=== PATIENT | female | born 1985 | race American Indian/Alaskan Native ===

== ENCOUNTER 2016-07-28 18:45 | Inpatient (IN) | payer MEDICAID ==
[2016-07-28 18:49] VITALS: BMI 21.6
[2016-07-28] MEDS ORDERED: Sodium Chloride 0.9% 1,000 ML IV STA ×2 (19:03→21:20)
--- NOTE | 2016-07-28 19:07 | ED PDOC ---
"Arrival/HPI - General Chief Complaint: Abdominal Pain Time Seen by Provider: 07/28/16 18:57 Historian: Patient - History of Present Illness Narrative History of Present Illness (Text): 07/28/16 19:04 31 y/o female, pmh including htn/lupus, penicillin allergy, c/o rt. upper quadrant and lower quadrant abdominal pain x 3 days. Pt. stated that she started to feel warm about today ago, started to have rt. upper and lower abdominal pain today, feels generalized body aching pain, no nausea or vomiting , no dizziness, no palpitation, no other medical or psychological complaints. Past Medical History - Provider Review Nursing Documentation Reviewed: Yes - Cardiac Hx Hypertension: Yes - Endocrine/Metabolic Hx Systemic Lupus Erythematosus: Yes - Psychiatric Hx Substance Use: No - Surgical History Hx Section: Yes Hx Joint Replacement: Yes (Bilateral Hip) Family/Social History - Physician Review Nursing Documentation Reviewed: Yes Family/Social History: Unknown Family HX Smoking Status: Never Smoked Hx Alcohol Use: No Hx Substance Use: No Allergies/Home Meds Allergies/Adverse Reactions: Allergies Penicillins Allergy (Verified 07/28/16 18:49) ANAPHYLAXIS Home Medications: Home Meds Medication Instructions Recorded Confirmed Cholecalciferol (Vitamin D3) 2,000 unit PO DAILY 07/28/16 07/28/16 [Vitamin D3] Hydroxychloroquine Sulfate 200 mg PO BID 07/28/16 07/28/16 amLODIPine [Norvasc] 5 mg PO DAILY 07/28/16 07/28/16 azaTHIOprine [Azathioprine] 50 mg PO DAILY 07/28/16 07/28/16 predniSONE [predniSONE Tab] 5 mg PO BID 07/28/16 07/28/16 Review of Systems - Review of Systems Constitutional: Fatigue, Fevers Eyes: absent: Vision Changes ENT: absent: Hearing Changes Respiratory: absent: SOB, Cough Cardiovascular: absent: Chest Pain Gastrointestinal: Abdominal Pain. absent: Nausea, Vomiting Musculoskeletal: Myalgias. absent: Arthralgias, Back Pain Psychiatric: absent: Anxiety, Depression, Suicidal Ideation Physical Exam Vital Signs Reviewed: Yes Vital Signs Temp Pulse Resp BP Pulse Ox 07/28/16 23:36 16 99 07/28/16 21:41 98.9 F 87 16 108/73 98 07/28/16 21:12 97 H 18 103/77 100 07/28/16 19:58 102 H 18 101/73 100 07/28/16 18:53 99.7 F H 114 H 16 99/71 L 100 Temperature: Afebrile Blood Pressure: Normal Pulse: Tachycardic Respiratory Rate: Normal Appearance: Positive for: Well-Appearing, Non-Toxic, Uncomfortable Pain Distress: Moderate Mental Status: Positive for: Alert and Oriented X 3 - Systems Exam Head: Present: Atraumatic, Normocephalic Pupils: Present: PERRL Extroacular Muscles: Present: EOMI Conjunctiva: Present: Normal Ears: Present: NORMAL TM, Normal Canal. No: Erythema Mouth: Present: Moist Mucous Membranes Nose (Internal): Present: Normal Inspection, No Active Bleeding. No: Rhinorrhea , Septal Hematoma, Epistaxis Neck: Present: Normal Range of Motion Respiratory/Chest: Present: Clear to Auscultation, Good Air Exchange. No: Respiratory Distress, Accessory Muscle Use, Wheezes, Decreased Breath Sounds, Rales, Retracting, Rhonchi Cardiovascular: Present: Regular Rate and Rhythm, Normal S1, S2. No: Murmurs Abdomen: Present: Tenderness (generalized tenderness), Normal Bowel Sounds. No : Distention, Peritoneal Signs Back: Present: Normal Inspection, CVA Tenderness (+rt.cva). No: Midline Tenderness, Paraspinal Tenderness Upper Extremity: Present: Normal Inspection. No: Cyanosis, Edema Lower Extremity: Present: Normal Inspection. No: Edema Neurological: Present: GCS=15, Speech Normal, Motor Func Grossly Intact, Gait Normal, Memory Normal Skin: Present: Warm, Dry, Normal Color. No: Rashes Psychiatric: Present: Alert, Oriented x 3, Normal Insight, Normal Concentration Medical Decision Making ED Course and Treatment: 07/28/16 19:07 -labs/ua/lipase -Gallbladder sonogram -CT Abdomen and pelvis -IVF/toradol/tylenol po -Observe and reasess 07/28/16 20:58 -Contrast cancelled due to the BUN/Creatine level elevated. 07/28/16 21:12 -Labs are non-significant except wbc 16.3, BUN 44, creatine 3.3, Urinalysis + UTI. IV rocephine ordered. -Gallbladder sonogram show no acute cholecystitis -CT Abdomen show rt. pernephric stranding, correlate with the Urinalysis. -Blood culture added. -Pt. will need admission for hydration/IV antibiotic and for renal insufficiency. -Paged the house doctor robby. 07/28/16 21:18 -I spoke to Dr. España and the medical historian Dr. Mega tSarr, discussed about the case/labs/radiology results, agreed on the admission. 07/28/16 21:19 -I discussed with DR. Murray about the case, he will put in the admission order. 07/28/16 21:25 -Pt. stated that the pain return, morphine 2mg IV ordered. -Lactic acid 1.5 - Lab Interpretations Microbiology Results: Microbiology Results 07/28/16 19:10 Urine,Clean Catch Urine Culture - Final Escherichia Coli 07/28/16 20:30 Blood-Venous Blood Culture - Final Escherichia Coli 07/28/16 20:30 Blood-Venous Gram Stain - Final 07/28/16 20:00 Blood-Venous Blood Culture - Final Escherichia Coli 07/28/16 20:00 Blood-Venous Gram Stain - Final Lab Results: 07/28/16 19:20 07/28/16 19:20 Lab Results 07/28/16 21:10: pO2 37, VBG pH 7.30 L, VBG pCO2 44.0, VBG HCO3 21.6, VBG Total CO2 23.0, VBG O2 Sat (Calc) 67.0 H, VBG Base Excess -4.8 L, VBG Potassium 3.6, Glucose 94, Lactate 1.5, FiO2 21.0, Sodium 138.0, Chloride 110.0 H, Venous Blood Potassium 3.6 07/28/16 19:20: Sodium 137, Potassium 3.7, Chloride 100, Carbon Dioxide 24, Anion Gap 17, BUN 44 H, Creatinine 3.3 H, Est GFR ( Amer) 20, Est GFR ( Non-Af Amer) 16, Random Glucose 116 H, Calcium 10.0, Total Bilirubin 1.0, AST 41 H, ALT 25, Alkaline Phosphatase 102, Total Protein 8.6 H, Albumin 3.9, Globulin 4.7, Albumin/Globulin Ratio 0.8 L, Lipase < 10 L 07/28/16 19:20: WBC 16.3 H, RBC 3.40 L, Hgb 11.2 L, Hct 32.1 L, MCV 94.4, MCH 32.9, MCHC 34.9, RDW 13.3, Plt Count 157, MPV 12.2 H, Gran % 94.2 H, Lymph % ( Auto) 1.8 L, [place] % (Auto) 3.8, Eos % (Auto) 0.1 L, Baso % (Auto) 0.1, Gran # 15.36 H, Lymph # 0.3 L, [place] # 0.6, Eos # 0.0, Baso # 0.01, Retic Count 0.46 L 07/28/16 19:10: Urine Color Yellow, Urine Appearance Turbid, Urine pH 5.5, Ur Specific [place] >= 1.030, Urine Protein >=300 H, Urine Glucose (UA) Negative, Urine Ketones Negative, Urine Blood Large H, Urine Nitrate Negative, Urine Bilirubin Small H, Urine Urobilinogen 1.0 H, Ur Leukocyte Esterase Moderate H, Urine RBC 5 - 10, Urine WBC Tntc, Ur Epithelial Cells 3 - 4, Urine Bacteria Many , Coarse Granular Casts Mod H I have reviewed the lab results: Yes Interpretation: Abnormal lab values (wbc 16.3, BUN 44, creatine 3.3, Urinalysis +UTI) - RAD Interpretation Radiology Orders: 07/28/16 19:03 GALLBLADDER & COMMON DUCT [US] Stat 07/28/16 20:19 ABDOMEN & PELVIS [ABD & PELVIS W/O PO OR IV CONT] [CT] Stat Gallbladder sonogram: Liver: Fatty infiltration. No mass. No intrahepatic ductal dilatation. Gallbladder: No gallstones. No wall thickening. No pericholecystic fluid. No sonographic Sommer's sign. Common bile duct: No dilatation. No stones. Pancreas: Unremarkable as visualized. Right kidney: Normal echogenicity. No hydronephrosis. Other findings: 1.1 x 2.1 x 1.4 cm paraaortic lesion. IMPRESSION: 1. Hepatic steatosis. 2. Probable paraaortic lymph node. 3. Incidental/non-acute findings are described above. Thank you for allowing us to participate in the care of your patient. Dictated and Authenticated by: Rolando Mtz MD 07/28/2016 8:56 PM Eastern Time ([place] & [place]) CT Abdomen and pelvis: FINDINGS: Limitations: Streak artifact - mild. Lack of intravenous contrast. Lower thorax: No acute findings. ABDOMEN: Liver: Mildly enlarged. Gallbladder and bile ducts: No calcified stones. No ductal dilation. Pancreas: Unremarkable. No ductal dilation. Spleen: No splenomegaly. Adrenals: No mass. Kidneys and ureters: Mild stranding about RIGHT kidney. No renal calculi. No hydronephrosis. Normal caliber visualized ureters. Suboptimal visualization of distal ureters due to streak artifact. Stomach and bowel: Segmental areas of underdistention of colon. No definite mural thickening. No obstruction. Appendix: Normal caliber. No inflammation. PELVIS: Bladder: Unremarkable. No stones. Reproductive: Unremarkable as visualized. AMAYAANUPAM | Final Radiology Report CONFIDENTIALITY STATEMENT This report is intended only for use by the referring physician, and only in accordance with law. If you received this in error, call [phone]. Page 2 of 2 ABDOMEN and PELVIS: Intraperitoneal space: No significant fluid collection. No free air. Bones/joints: Bilateral hip arthroplasties. No acute fracture. Soft tissues: Unremarkable. Vasculature: Unremarkable. No abdominal aortic aneurysm. Lymph nodes: No pathologically enlarged lymph nodes. IMPRESSION: 1. No definite CT evidence of urolithiasis. 2. RIGHT perinephric stranding, nonspecific. Pyelonephritis not excluded. Correlate with urinalysis. 3. Incidental/non-acute findings are described above. Thank you for allowing us to participate in the care of your patient. Dictated and Authenticated by: Rolando Mtz MD 07/28/2016 9:08 PM Eastern Time ([place] & [place]) Chest xray: no consolidation or infiltrate Molecular Geneticist: Radiologist - Medication Orders Current Medication Orders: Amlodipine Besylate (Norvasc) 5 mg PO DAILY [facility] Last Admin: 08/01/16 09:21 Dose: 5 mg Azathioprine (Imuran) 50 mg PO DAILY [facility] Last Admin: 07/31/16 09:55 Dose: 50 mg Hydroxychloroquine Sulfate (Plaquenil) 200 mg PO BID [facility] Last Admin: 08/01/16 09:20 Dose: 200 mg Aztreonam (Azactam 1 Gm) 100 mls @ 100 mls/hr IV Q8 [facility] PRN Reason: Protocol Stop: 08/13/16 22:01 Last Admin: 08/01/16 05:00 Dose: 100 mls/hr Sodium Chloride (Sodium Chloride 0.9%) 1,000 mls @ 100 mls/hr IV .Q10H [facility] Last Admin: 08/01/16 09:09 Dose: 100 mls/hr Morphine Sulfate (Morphine) 1 mg IVP Q4 PRN PRN Reason: moderate pain Last Admin: 08/01/16 09:18 Dose: 1 mg Ondansetron HCl (Zofran Inj) 4 mg IVP Q4 PRN PRN Reason: Nausea/Vomiting Last Admin: 08/01/16 09:00 Dose: 4 mg Pantoprazole Sodium (Protonix Inj) 40 mg IVP DAILY [facility] Last Admin: 08/01/16 09:19 Dose: 40 mg Prednisone (Prednisone Tab) 5 mg PO BID [facility] Last Admin: 08/01/16 09:20 Dose: 5 mg Sucralfate (Carafate Oral Susp) 1 gm PO TID PRN PRN Reason: Dyspepsia Last Admin: 07/29/16 05:39 Dose: 1 gm Discontinued Medications Acetaminophen (Tylenol 325mg Tab) 650 mg PO STAT STA Stop: 07/28/16 19:09 Last Admin: 07/28/16 19:34 Dose: 650 mg Re-Assess: MAR Pain/Vitals Document 07/28/16 20:34 JOL (Rec: 07/28/16 21:07 JOL [id number]) Pain Reassessment Is This A Pain ReAssessment? No Sleep Is patient sleeping during reassessment? No Presence of Pain Presence of Pain Yes Acetaminophen (Tylenol 325mg Tab) 650 mg PO Q6H PRN PRN Reason: Fever >100.4 F Last Admin: 08/01/16 07:15 Dose: 650 mg Acetaminophen (Tylenol 325mg Tab) 650 mg PO STAT STA Stop: 08/01/16 08:33 Last Admin: 08/01/16 09:01 Dose: 650 mg Sodium Chloride (Sodium Chloride 0.9%) 1,000 mls @ 999 mls/hr IV .Q1H1M STA Stop: 07/28/16 20:03 Last Admin: 07/28/16 19:25 Dose: 999 mls/hr Ceftriaxone Sodium (Rocephin 1 Gram Ivpb) 1 gm in 100 mls @ 200 mls/hr IVPB STAT STA PRN Reason: Protocol Stop: 07/28/16 20:49 Last Admin: 07/28/16 21:13 Dose: 200 mls/hr Sodium Chloride (Sodium Chloride 0.9%) 1,000 mls @ 999 mls/hr IV .Q1H1M STA Stop: 07/28/16 22:20 Last Admin: 07/28/16 21:55 Dose: Sodium Chloride (Sodium Chloride 0.9%) 1,000 mls @ 100 mls/hr IV .Q10H [facility] Last Admin: 07/28/16 21:48 Dose: 100 mls/hr Ceftriaxone Sodium (Rocephin 1 Gram Ivpb) 1 gm in 100 mls @ 100 mls/hr IVPB DAILY [facility] PRN Reason: Protocol Last Admin: 07/29/16 09:31 Dose: 100 mls/hr Sodium Chloride (Sodium Chloride 0.9%) 1,000 mls @ 150 mls/hr IV .Q6H40M [facility] Last Admin: 07/30/16 03:59 Dose: 150 mls/hr Potassium Chloride (Potassium Chloride 10 Meq/100 Ml) 10 meq in 100 mls @ 100 mls/hr IVPB Q2H [facility] Stop: 07/29/16 12:29 Last Admin: 07/29/16 15:13 Dose: 100 mls/hr Ciprofloxacin (Cipro 400mg/200ml Dsw) 400 mg in 200 mls @ 133.3 mls/hr IVPB Q12 [facility] PRN Reason: Protocol Stop: 07/29/16 14:01 Last Admin: 07/29/16 15:08 Dose: 133.3 mls/hr Aztreonam (Azactam 1 Gm) 100 mls @ 100 mls/hr IVPB Q8 [facility] PRN Reason: Protocol Stop: 07/30/16 22:59 Last Admin: 07/30/16 15:10 Dose: 100 mls/hr Iohexol (Omnipaque 240 (50 Ml)) Confirm Administered Dose 100 ml .ROUTE .STK- MED ONE Stop: 07/28/16 19:21 Last Admin: 07/28/16 21:08 Dose: Iohexol (Omnipaque 350 100 Ml) Confirm Administered Dose 350 mg .ROUTE .STK-MED ONE Stop: 07/28/16 19:22 Ketorolac Tromethamine (Toradol) 30 mg IVP STAT STA Stop: 07/28/16 19:09 Last Admin: 07/28/16 19:33 Dose: 30 mg Re-Assess: [facility] Pain Assessment Document 07/28/16 20:33 JORica (Rec: 07/28/16 21:07 [facility] [id number]) Pain Reassessment Is this a pain reassessment? No Sleep Is patient sleeping during reassessment? No Presence of Pain Presence of Pain Yes Morphine Sulfate (Morphine) 2 mg IVP STAT STA Stop: 07/28/16 21:26 Last Admin: 07/28/16 21:48 Dose: 2 mg Morphine Sulfate (Morphine) 2 mg IVP Q6H PRN PRN Reason: Pain, severe (8-10) Morphine Sulfate (Morphine) 2 mg IVP Q3H PRN PRN Reason: Pain, severe (8-10) Last Admin: 07/29/16 12:17 Dose: 2 mg Morphine Sulfate (Morphine) 4 mg IVP Q3H PRN PRN Reason: moderate pain Last Admin: 07/31/16 13:32 Dose: 4 mg Re-Assess: [facility] Pain Assessment Document 07/31/16 14:32 LORA (Rec: 07/31/16 14:58 [facility] [id number]) Pain Reassessment Is this a pain reassessment? Yes Sleep Is patient sleeping during reassessment? No Presence of Pain Presence of Pain No Morphine Sulfate (Morphine) 2 mg IVP Q3H PRN PRN Reason: moderate pain Last Admin: 08/01/16 04:24 Dose: 2 mg Re-Assess: [facility] Pain Assessment Document 08/01/16 05:24 SD (Rec: 08/01/16 07:14 SD [id number]) Pain Reassessment Is this a pain reassessment? Yes Sleep Is patient sleeping during reassessment? No Presence of Pain Presence of Pain No Pain Scale Used Pain Scale Used Numeric Ondansetron HCl (Zofran Inj) 8 mg IVP Q8H PRN PRN Reason: Nausea/Vomiting Ondansetron HCl (Zofran Inj) 4 mg IVP Q6H PRN PRN Reason: Nausea/Vomiting Potassium Chloride (K-Dur 20 Meq Er Tab) 20 meq PO ONCE ONE Stop: 08/01/16 14:39 - PA / [employer]ER [employer]IVER / Resident Statement MD/DO has reviewed & agrees with the documentation as recorded. Disposition/Present on Arrival - Present on Arrival Any Indicators Present on Arrival: No History of DVT/PE: No History of Uncontrolled Diabetes: No Urinary Catheter: No History of Decub. Ulcer: No History Surgical Site Infection Following: None - Disposition Have Diagnosis and Disposition been Completed?: Yes Diagnosis: Pyelonephritis, Leukocytosis (leucocytosis), Dehydration, Renal injury, Renal insufficiency Disposition: HOSPITALIZED Disposition Time: 21:14 Patient Plan: Admission Patient Problems: Current Active Problems Problem Status Onset Dehydration Acute Leukocytosis (leucocytosis) Acute Pyelonephritis Acute Renal injury Acute Renal insufficiency Acute Condition: STABLE"
[2016-07-28] MEDS ORDERED: Iohexol 240 (50 ml) ONE (19:20)
[2016-07-28] MEDS ORDERED: Iohexol 350 MG/100 ML VIAL ONE (19:21)
[2016-07-28 19:25] LABS: PH,URINE 5.5 (4.7-8.0); URINE BILIRUBIN SMALL (NEGATIVE); URINE BLOOD LARGE (NEGATIVE); URINE GLUCOSE (UA) NEGATIVE (NEGATIVE); URINE KETONE NEGATIVE (NEGATIVE); URINE LEUKOCYTE ESTERASE MODERATE Leu/uL (NEGATIVE); URINE PROTEIN >=300 mg/dL (<30 mg/dL)
[2016-07-28 19:28] LABS: URINE APPEARANCE TURBID (CLEAR); URINE COLOR YELLOW (YELLOW)
[2016-07-28 19:31] LABS: URINE WBC TNTC /hpf (0-6)
[2016-07-28 19:32] LABS: URINE BACTERIA MANY (NEG)
[2016-07-28 19:34] LABS: ADD MANUAL DIFF? NO
[2016-07-28 19:42] LABS: BASO # 0.01 K/mm3 (0.0-2.0); BASO % 0.1 % (0.0-3.0); EOS % 0.1 % (1.5-5.0); GRAN # 15.36 (1.4-6.5); GRAN % 94.2 % (50.0-68.0); HEMATOCRIT 32.1 % (36.0-48.0); LYMPH # 0.3 (1.2-3.4); LYMPH % 1.8 % (22.0-35.0); MEAN CELL VOLUME 94.4 fL (80.0-105.0); MEAN CORPUSCULAR HEMOGLOBIN 32.9 pg (25.0-35.0); MEAN CORPUSCULAR HGB CONC 34.9 g/dl (31.0-37.0); MEAN PLATELET VOLUME 12.2 fl (7.0-11.0); MONO # 0.6 (0.1-0.6); MONO % 3.8 % (1.0-6.0); PLATELET COUNT 157 10^3/uL (120.0-450.0); RED CELL DISTRIBUTION WIDTH 13.3 % (11.5-14.5); RETIC% 0.46 % (0.5-1.5); WHITE BLOOD COUNT 16.3 10^3/ul (4.5-11.0)
[2016-07-28 19:52] LABS: ALB/GLOB RATIO 0.8 (1.1-1.8); ALKALINE PHOSPHATASE 102 U/L (38-133); ALT/SGPT 25 U/L (7-56); AST/SGOT 41 U/L (15-39); BLOOD UREA NITROGEN 44 mg/dL (7-21); CARBON DIOXIDE 24 mmol/L (21-33); CHLORIDE 100 mmol/L (98-107); GFR AFRICAN-AMERICAN 20; GLUCOSE,RANDOM 116 mg/dL (70-110); POTASSIUM 3.7 mmol/L (3.6-5.0); SODIUM 137 mmol/L (132-148); TOTAL PROTEIN 8.6 g/dL (5.8-8.3)
[2016-07-28 19:53] LABS: LIPASE < 10 U/L (23-300)
[2016-07-28] MEDS ORDERED: cefTRIAXone 1 gm 1 GM/100 ML BAG IVPB STA (20:20)
--- NOTE | 2016-07-28 20:56 | US ---
EXAM: US Abdomen Limited, Right Upper Quadrant CLINICAL HISTORY: 31 years old, female; Pain; Abdominal pain; Epigastric; Additional info: Ruq pain TECHNIQUE: Real-time ultrasound of the right upper quadrant with image documentation. COMPARISON: No relevant prior studies available. FINDINGS: Liver: Fatty infiltration. No mass. No intrahepatic ductal dilatation. Gallbladder: No gallstones. No wall thickening. No pericholecystic fluid. No sonographic Sommer's sign. Common bile duct: No dilatation. No stones. Pancreas: Unremarkable as visualized. Right kidney: Normal echogenicity. No hydronephrosis. Other findings: 1.1 x 2.1 x 1.4 cm paraaortic lesion. IMPRESSION: 1. Hepatic steatosis. 2. Probable paraaortic lymph node. 3. Incidental/non-acute findings are described above.
--- NOTE | 2016-07-28 21:09 | CT ---
EXAM: CT Abdomen and Pelvis Without Intravenous Contrast CLINICAL HISTORY: 31 years old, female; Pain; Abdominal pain; Flank; Right; Additional info: Rt. Flank pain TECHNIQUE: Axial computed tomography images of the abdomen and pelvis without intravenous contrast. This CT exam was performed using one or more of the following dose reduction techniques: automated exposure control, adjustment of the mA and/or kV according to patient size, and/or use of iterative reconstruction technique. Coronal and sagittal reformatted images were created and reviewed. COMPARISON: US - GALLBLADDER 07/28/2016 7:38:57 PM FINDINGS: Limitations: Streak artifact - mild. Lack of intravenous contrast. Lower thorax: No acute findings. ABDOMEN: Liver: Mildly enlarged. Gallbladder and bile ducts: No calcified stones. No ductal dilation. Pancreas: Unremarkable. No ductal dilation. Spleen: No splenomegaly. Adrenals: No mass. Kidneys and ureters: Mild stranding about RIGHT kidney. No renal calculi. No hydronephrosis. Normal caliber visualized ureters. Suboptimal visualization of distal ureters due to streak artifact. Stomach and bowel: Segmental areas of underdistention of colon. No definite mural thickening. No obstruction. Appendix: Normal caliber. No inflammation. PELVIS: Bladder: Unremarkable. No stones. Reproductive: Unremarkable as visualized. ABDOMEN and PELVIS: Intraperitoneal space: No significant fluid collection. No free air. Bones/joints: Bilateral hip arthroplasties. No acute fracture. Soft tissues: Unremarkable. Vasculature: Unremarkable. No abdominal aortic aneurysm. Lymph nodes: No pathologically enlarged lymph nodes. IMPRESSION: 1. No definite CT evidence of urolithiasis. 2. RIGHT perinephric stranding, nonspecific. Pyelonephritis not excluded. Correlate with urinalysis. 3. Incidental/non-acute findings are described above.
[2016-07-28 21:20] LABS: VENOUS BLOOD GAS BASE EXCESS -4.8 mmol/L (0.0-2.0)
[2016-07-28] MEDS ORDERED: Morphine 2 mg/ml ISec IVP STA (21:25)
[2016-07-28] MEDS ORDERED: Morphine 2 mg/ml ISec IVP PRN (21:27)
[2016-07-28] MEDS ORDERED: Sodium Chloride 0.9% 1,000 ML IV SCH (21:30)
--- NOTE | 2016-07-28 22:29 | CP.PCM.HP ---
History of Present Illness - History of Present Illness History of Present Illness: CC: abdominal pain and fever x 3 days HPI: 31 y/o AAF with a PMHx SLE, Htn presents to the ED after having right sided abdominal/flank pain over the past 3 days. She reports initially having fevers for which she was taking tylenol and it would improve her fever, however it would return once the medication wore off. She subsequently began having flank pain on the right side and today also had episodes of NBNB vomitus so she came to the ED. She denies any complaints of headache, dizziness, shortness of breath, chest pain, diarrhea or dysuria. She also does report having heartburn which began prior to her vomiting and has persisted since. She denies prior similar episodes/recent travel or sick contacts. Allergies: PCN Fam Hx: Mother - Htn and CKD Soc Hx: Denies tobacco/etoh/illicit drug use Meds: Vit D3 Prednisone 5mg po bid Azathioprine 50mg po daily Hydroxychloroquine 200mg bid Norvasc 5mg po daily Present on Admission - Present on Admission Any Indicators Present on Admission: No Review of Systems - Review of Systems Review of Systems: As per HPI otherwise negative for a 12 point ROS Past Patient History - Past Social History Smoking Status: Never Smoked Alcohol: None Drugs: Denies Home Situation {Lives}: With Family - CARDIAC Hx Hypertension: Yes - ENDOCRINE/METABOLIC Hx Systemic Lupus Erythematosus: Yes - PSYCHIATRIC Hx Substance Use: No - SURGICAL HISTORY Hx Section: Yes Hx Joint Replacement: Yes (Bilateral Hip) Meds Allergies/Adverse Reactions: Allergies Allergy/AdvReac Type Severity Reaction Status Date / Time Penicillins Allergy ANAPHYLAXIS Verified 07/28/16 18:49 Physical Exam - Constitutional Appears: Well, Non-toxic, No Acute Distress - Head Exam Head Exam: ATRAUMATIC, NORMOCEPHALIC - Eye Exam Eye Exam: EOMI - ENT Exam ENT Exam: Mucous Membranes Moist - Neck Exam Neck exam: Positive for: Full Rom - Respiratory Exam Respiratory Exam: Clear to Auscultation Bilateral, NORMAL BREATHING PATTERN. absent: Rhonchi, Wheezes - Cardiovascular Exam Cardiovascular Exam: REGULAR RHYTHM, +S1, +S2 - GI/Abdominal Exam GI & Abdominal Exam: Normal Bowel Sounds, Tenderness (right abdomen mildly tender to palpation). absent: Guarding, Rebound - Rectal Exam Rectal Exam: Deferred - Extremities Exam Extremities exam: Positive for: normal inspection - Back Exam Back exam: CVA tenderness (R) - Neurological Exam Neurological exam: Alert, Oriented x3 - Psychiatric Exam Psychiatric exam: Normal Affect, Normal Mood - Skin Skin Exam: Dry, Intact, Normal Color, Warm Results - Vital Signs Recent Vital Signs: Last Vital Signs Temp 98.9 F 07/28/16 21:41 Pulse 87 07/28/16 21:41 Resp 16 07/28/16 21:41 BP 108/73 07/28/16 21:41 Pulse Ox 98 07/28/16 21:41 - Labs Result Diagrams: 07/28/16 19:20 07/28/16 19:20 - EKG Data EKG Interpreted by: Myself EKG shows normal: Sinus rhythm - Imaging and Cardiology CT scan - abdomen Status: Image reviewed by me, Report reviewed by me (right sided pyelonephritis ; no nephrolithiasis or hydronephrosis) Assessment & Plan - Assessment and Plan (Free Text) Assessment: 31 y/o female with a PMHx SLE, Htn who presents to the ED with 3 days of abdominal pain is found to have pyelonephritis. She will be admitted to the hospital for further care and treatment. Plan: 1) Right sided pyelonephritis - will place her on IVF with normal saline @ 150/ hr; c/w Rocephin IV for ABx coverage; follow up urine culture; Zofran prn nausea /vomiting and morphine prn pain. 2) SLE - c/w hydroxychloroqine and prednisone daily; does not appear to have an acute flare at this time 3) Htn -c/w amlodipine po daily 4) Heartburn - likely secondary to reflux associated with nausea/vomiting; will place on protonix daily along with carafate prn 5) DVT ppx - SCD's to the knee
[2016-07-28] MEDS ORDERED: Sucralfate 1 gm/10 ml Oral Susp UD PO PRN (22:32)
[2016-07-29] MEDS: Morphine 2 mg/ml ISec IVP PRN ×4 (01:32→12:17)
[2016-07-29] MEDS: Sodium Chloride 0.9% 1,000 ML IV SCH ×3 (05:38→21:30)
[2016-07-29 07:39] LABS: ADD MANUAL DIFF? NO
[2016-07-29 07:44] LABS: BASO # 0.01 K/mm3 (0.0-2.0); BASO % 0.1 % (0.0-3.0); EOS % 0.2 % (1.5-5.0); GRAN # 10.71 (1.4-6.5); HEMATOCRIT 27.7 % (36.0-48.0); LYMPH # 0.2 (1.2-3.4); MEAN CELL VOLUME 93.9 fL (80.0-105.0); MEAN CORPUSCULAR HEMOGLOBIN 31.5 pg (25.0-35.0); MEAN CORPUSCULAR HGB CONC 33.6 g/dl (31.0-37.0); MEAN PLATELET VOLUME 11.8 fl (7.0-11.0); MONO # 0.7 (0.1-0.6); MONO % 5.7 % (1.0-6.0); PLATELET COUNT 117 10^3/uL (120.0-450.0); RED CELL DISTRIBUTION WIDTH 13.3 % (11.5-14.5); WHITE BLOOD COUNT 11.6 10^3/ul (4.5-11.0)
--- NOTE | 2016-07-29 08:01 | RAD ---
HISTORY: medical clearance COMPARISON: No prior. FINDINGS: LUNGS: No come PLEURA: No significant pleural effusion identified, no pneumothorax apparent. CARDIOVASCULAR: Heart size normal. Pulmonary vessels/central hilar structures appear prominent -etiology, significance and chronicity uncertain OSSEOUS STRUCTURES: No significant abnormalities. VISUALIZED UPPER ABDOMEN: Normal. OTHER FINDINGS: None. IMPRESSION: No acute pulmonary infiltrates. No pulmonary vascular congestion. No pleural effusions. Ends noted is prominence of the hilar vasculature as detailed above. Consider elective follow-up CT chest imaging with contrast enhancement for further evaluation. No comparison studies to assess for stability
[2016-07-29 08:17] LABS: CALCIUM 8.5 mg/dL (8.4-10.5); POTASSIUM 3.4 mmol/L (3.6-5.0)
[2016-07-29 08:34] LABS: ALB/GLOB RATIO 0.8 (1.1-1.8); TOTAL PROTEIN 5.9 g/dL (5.8-8.3)
[2016-07-29 08:36] LABS: BILIRUBIN,DIRECT 0.5 mg/dL (0.0-0.4); BILIRUBIN,TOTAL 0.6 mg/dL (0.2-1.3)
[2016-07-29] MEDS ORDERED: cefTRIAXone 1 gm 1 GM/100 ML BAG IVPB SCH (10:00)
[2016-07-29] MEDS ORDERED: Ciprofloxacin 400mg/200ml D5W 400 MG/200 ML BAG IVPB SCH (12:30)
--- NOTE | 2016-07-29 14:08 | CP.PCM.PN ---
<Mundo Finn - Last Filed: 07/29/16 14:35> Subjective - Date & Time of Evaluation Date of Evaluation: 07/29/16 Time of Evaluation: 10:00 - Subjective Subjective: Patient seen at bedside. She is afebrile. Continues to complain of right sided abdominal discomfort as well as right flank discomfort. She experienced one episode of nonbloody, nonbilious vomiting. She denies any urinary symptoms including dysuria, hematuria. Objective - Vital Signs/Intake and Output Vital Signs (last 24 hours): Temp Pulse Resp BP Pulse Ox 97.6 F 98 H 20 100/67 98 07/29/16 06:00 07/29/16 09:30 07/29/16 06:00 07/29/16 09:30 07/29/16 06:00 Intake and Output: 07/29/16 07/29/16 06:59 18:59 Intake Total 3700 120 Balance 3700 120 - Medications Medications: Current Medications Acetaminophen (Tylenol 325mg Tab) 650 mg PO Q6H PRN PRN Reason: Fever >100.4 F Amlodipine Besylate (Norvasc) [address] [facility] Last Admin: 07/29/16 09:30 Dose: 5 mg Azathioprine (Imuran) [address] [facility] Last Admin: 07/29/16 09:30 Dose: 50 mg Hydroxychloroquine Sulfate (Plaquenil) [address] [facility] Last Admin: 07/29/16 09:30 Dose: 200 mg Sodium Chloride (Sodium Chloride 0.9%) 1,000 mls @ 150 mls/hr IV .Q6H40M [facility] Last Admin: 07/29/16 12:18 Dose: 150 mls/hr Morphine Sulfate (Morphine) 4 mg IVP Q3H PRN PRN Reason: moderate pain Ondansetron HCl (Zofran Inj) 4 mg IVP Q4 PRN PRN Reason: Nausea/Vomiting Last Admin: 07/29/16 09:54 Dose: 4 mg Pantoprazole Sodium (Protonix Inj) [address] [facility] Last Admin: 07/29/16 09:32 Dose: 40 mg Prednisone (Prednisone Tab) [address] [facility] Last Admin: 07/29/16 09:30 Dose: 5 mg Sucralfate (Carafate Oral Susp) 1 gm PO TID PRN PRN Reason: Dyspepsia Last Admin: 07/29/16 05:39 Dose: 1 gm - Labs Labs: 07/29/16 07:15 07/29/16 07:10 - Eye Exam Eye Exam: EOMI, PERRL - ENT Exam ENT Exam: Mucous Membranes Moist - Neck Exam Neck Exam: Full ROM. absent: Lymphadenopathy, Meningismus - Respiratory Exam Respiratory Exam: Clear to Ausculation Bilateral. absent: Rales, Rhonchi, Wheezes - Cardiovascular Exam Cardiovascular Exam: REGULAR RHYTHM, +S1, +S2 - GI/Abdominal Exam GI & Abdominal Exam: Soft, Normal Bowel Sounds. absent: Tenderness - Extremities Exam Extremities Exam: absent: Calf Tenderness, Pedal Edema - Back Exam Back Exam: CVA tenderness (R) - Neurological Exam Neurological Exam: Alert, Awake, Oriented x3 - Psychiatric Exam Psychiatric exam: Normal Affect, Normal Mood - Skin Skin Exam: Normal Color, Warm Assessment and Plan - Assessment and Plan (Free Text) Assessment: 31 y/o female with a PMHx SLE, Htn who presents to the ED with acute pyelonephritis. CT abd/pelvis reveals evidence of gustavo-nephric inflammation. UA suggests infection. Patient initially started on Ceftriaxone. In light of PCN allergy and better efficacy the patient is switched to Ciprofloxacin IV. GENOVEVA is pre-renal. Renal function is improving with IVF. Right sided pyelonephritis - continue IVF - Ciprofloxacin 400mg IV q12 hr - Morphine 4q3hr for pain - zofran for nausea - NPO for now. will attempt to advance as tolerated. GENOVEVA - pre-renal 2/2 decreased PO intake coupled with vomiting - renal function is improved - continue IVF - avoid nephrotoxic meds - continue to monitor SLE c/w hydroxychloroqine and prednisone daily Htn -c/w amlodipine po daily Heartburn - likely secondary to reflux associated with nausea/vomiting; will place on protonix daily along with carafate prn DVT ppx - SCD's to the knee <Kirk Miranda - Last Filed: 08/01/16 12:52> Objective - Vital Signs/Intake and Output Vital Signs (last 24 hours): Temp Pulse Resp BP Pulse Ox 102.7 F H 120 H 19 137/73 94 L 08/01/16 09:00 08/01/16 09:21 08/01/16 06:00 08/01/16 09:21 08/01/16 06:00 Intake and Output: 08/01/16 08/01/16 06:59 18:59 Intake Total 900 240 Balance 900 240 - Medications Medications: Current Medications Amlodipine Besylate (Norvasc) [address] [facility] Last Admin: 08/01/16 09:21 Dose: 5 mg Azathioprine (Imuran) [address] [facility] Last Admin: 07/31/16 09:55 Dose: 50 mg Hydroxychloroquine Sulfate (Plaquenil) [address] [facility] Last Admin: 08/01/16 09:20 Dose: 200 mg Aztreonam (Azactam 1 Gm) 100 mls @ 100 mls/hr IV Q8 [facility] PRN Reason: Protocol Stop: 08/13/16 22:01 Last Admin: 08/01/16 05:00 Dose: 100 mls/hr Sodium Chloride (Sodium Chloride 0.9%) 1,000 mls @ 100 mls/hr IV .Q10H [facility] Last Admin: 08/01/16 09:09 Dose: 100 mls/hr Morphine Sulfate (Morphine) 1 mg IVP Q4 PRN PRN Reason: moderate pain Last Admin: 08/01/16 09:18 Dose: 1 mg Ondansetron HCl (Zofran Inj) 4 mg IVP Q4 PRN PRN Reason: Nausea/Vomiting Last Admin: 08/01/16 09:00 Dose: 4 mg Pantoprazole Sodium (Protonix Inj) [address] [facility] Last Admin: 08/01/16 09:19 Dose: 40 mg Prednisone (Prednisone Tab) [address] [facility] Last Admin: 08/01/16 09:20 Dose: 5 mg Sucralfate (Carafate Oral Susp) 1 gm PO TID PRN PRN Reason: Dyspepsia Last Admin: 07/29/16 05:39 Dose: 1 gm - Labs Labs: 08/01/16 07:45 08/01/16 07:45 PT 11.3 Seconds (9.9-11.8) 07/29/16 22:02 INR 1.05 (0.93-1.08) 07/29/16 22:02 Attending/Attestation - Attestation I have personally seen and examined this patient.: Yes I have fully participated in the care of the patient.: Yes I have reviewed all pertinent clinical information, including history, physical exam and plan: Yes Notes (Text): I have seen and examined patient at bedside. This is 31 year old female with history of SLE, HTN who presented with right flank pain and found to have acute pyelonephritis. CT abd/pelvis revealed evidence of gustavo-nephric inflammation. Blood and Urine culture pending. She is pen allergic and is on cipro. Patient also has acute kidney injury secondary to pre renal etiology. Will increase IVF. Continue hydroxychloroquin and prednisone. Continue norvasc. Upon discharge patient will follow up with Dr Gomez. Dr Kirk Miranda
[2016-07-29] MEDS: Morphine 4 mg/ml ISec IVP PRN ×2 (15:08→21:30)
[2016-07-29 22:28] LABS: INR 1.05 (0.93-1.08)
[2016-07-30] MEDS: Sodium Chloride 0.9% 1,000 ML IV SCH (03:59)
[2016-07-30 07:07] LABS: ADD MANUAL DIFF? NO
[2016-07-30 07:12] LABS: GRAN # 7.12 (1.4-6.5); GRAN % 86.3 % (50.0-68.0); HEMATOCRIT 25.1 % (36.0-48.0); LYMPH # 0.3 (1.2-3.4); LYMPH % 4.1 % (22.0-35.0); MEAN CELL VOLUME 94.4 fL (80.0-105.0); MEAN CORPUSCULAR HEMOGLOBIN 31.2 pg (25.0-35.0); MEAN CORPUSCULAR HGB CONC 33.1 g/dl (31.0-37.0); MEAN PLATELET VOLUME 12.1 fl (7.0-11.0); MONO # 0.8 (0.1-0.6); MONO % 9.6 % (1.0-6.0); PLATELET COUNT 117 10^3/uL (120.0-450.0); RED CELL DISTRIBUTION WIDTH 13.8 % (11.5-14.5); WHITE BLOOD COUNT 8.3 10^3/ul (4.5-11.0)
[2016-07-30] MEDS: Morphine 4 mg/ml ISec IVP PRN ×2 (09:32→20:18)
--- NOTE | 2016-07-30 09:39 | CP.PCM.PN ---
<Mundo Finn - Last Filed: 07/30/16 13:58> Subjective - Date & Time of Evaluation Date of Evaluation: 07/30/16 Time of Evaluation: 09:35 - Subjective Subjective: Patient seen and examined. She appears uncomfortable, continues to complain of abd discomfort. Afebrile overnight. + blood cultures noted. Denies nausea or vomiting. Notes no BM x2 days. Objective - Vital Signs/Intake and Output Vital Signs (last 24 hours): Temp Pulse Resp BP Pulse Ox 99.4 F 78 22 115/84 93 L 07/30/16 08:00 07/30/16 08:00 07/30/16 08:00 07/30/16 08:00 07/30/16 08:00 Intake and Output: 07/30/16 07/30/16 06:59 18:59 Intake Total 3900 Output Total 500 Balance 3400 - Medications Medications: Current Medications Acetaminophen (Tylenol 325mg Tab) 650 mg PO Q6H PRN PRN Reason: Fever >100.4 F Amlodipine Besylate (Norvasc) 5 mg PO DAILY [facility] Last Admin: 07/29/16 09:30 Dose: 5 mg Azathioprine (Imuran) 50 mg PO DAILY [facility] Last Admin: 07/29/16 09:30 Dose: 50 mg Hydroxychloroquine Sulfate (Plaquenil) 200 mg PO BID [facility] Last Admin: 07/29/16 17:28 Dose: 200 mg Sodium Chloride (Sodium Chloride 0.9%) 1,000 mls @ 150 mls/hr IV .Q6H40M [facility] Last Admin: 07/30/16 03:59 Dose: 150 mls/hr Aztreonam (Azactam 1 Gm) 100 mls @ 100 mls/hr IVPB Q8 [facility] PRN Reason: Protocol Stop: 07/30/16 22:59 Morphine Sulfate (Morphine) 4 mg IVP Q3H PRN PRN Reason: moderate pain Last Admin: 07/29/16 21:30 Dose: 4 mg Ondansetron HCl (Zofran Inj) 4 mg IVP Q4 PRN PRN Reason: Nausea/Vomiting Last Admin: 07/29/16 09:54 Dose: 4 mg Pantoprazole Sodium (Protonix Inj) 40 mg IVP DAILY [facility] Last Admin: 07/29/16 09:32 Dose: 40 mg Prednisone (Prednisone Tab) 5 mg PO BID [facility] Last Admin: 07/29/16 17:28 Dose: 5 mg Sucralfate (Carafate Oral Susp) 1 gm PO TID PRN PRN Reason: Dyspepsia Last Admin: 07/29/16 05:39 Dose: 1 gm - Labs Labs: 07/30/16 07:00 07/29/16 07:10 PT 11.3 Seconds (9.9-11.8) 07/29/16 22:02 INR 1.05 (0.93-1.08) 07/29/16 22:02 - Head Exam Head Exam: ATRAUMATIC, NORMOCEPHALIC - Eye Exam Eye Exam: EOMI, PERRL - ENT Exam ENT Exam: Mucous Membranes Moist - Neck Exam Neck Exam: Full ROM, Normal Inspection. absent: Lymphadenopathy, Meningismus - Respiratory Exam Respiratory Exam: Clear to Ausculation Bilateral. absent: Rales, Rhonchi, Wheezes - Cardiovascular Exam Cardiovascular Exam: REGULAR RHYTHM, +S1, +S2 - GI/Abdominal Exam GI & Abdominal Exam: Guarding, Soft, Tenderness. absent: Distended - Extremities Exam Extremities Exam: absent: Calf Tenderness, Pedal Edema - Neurological Exam Neurological Exam: Alert, Awake, Oriented x3 - Psychiatric Exam Psychiatric exam: Normal Affect, Normal Mood - Skin Skin Exam: Normal Color, Warm Assessment and Plan - Assessment and Plan (Free Text) Assessment: 31 y/o female with a PMHx SLE, Htn who presents to the ED with acute pyelonephritis. CT abd/pelvis reveals evidence of gustavo-nephric inflammation. UA suggests infection. Blood cultures are growing gram + rods. ID consulted. Echo is pending. Patient started on Azactam Right sided pyelonephritis - continue IVF - started on Aztreonam - ID consulted - Morphine 4q3hr PRN for pain - zofran for nausea - NPO for now. will attempt to advance as tolerated. Bacteremia - gram negative rods growing - repeat culture - ID consulted - echo ordered GENOVEVA - pre-renal 2/2 decreased PO intake coupled with vomiting - renal function is improved - continue IVF - avoid nephrotoxic meds - continue to monitor SLE - c/w hydroxychloroqine and prednisone daily Htn - c/w amlodipine po daily PPX - protonix 40mg daily - scd's <Kirk Miranda B - Last Filed: 08/01/16 12:54> Objective - Vital Signs/Intake and Output Vital Signs (last 24 hours): Temp Pulse Resp BP Pulse Ox 102.7 F H 120 H 19 137/73 94 L 08/01/16 09:00 08/01/16 09:21 08/01/16 06:00 08/01/16 09:21 08/01/16 06:00 Intake and Output: 08/01/16 08/01/16 06:59 18:59 Intake Total 900 240 Balance 900 240 - Medications Medications: Current Medications Amlodipine Besylate (Norvasc) 5 mg PO DAILY [facility] Last Admin: 08/01/16 09:21 Dose: 5 mg Azathioprine (Imuran) 50 mg PO DAILY [facility] Last Admin: 07/31/16 09:55 Dose: 50 mg Hydroxychloroquine Sulfate (Plaquenil) 200 mg PO BID [facility] Last Admin: 08/01/16 09:20 Dose: 200 mg Aztreonam (Azactam 1 Gm) 100 mls @ 100 mls/hr IV Q8 [facility] PRN Reason: Protocol Stop: 08/13/16 22:01 Last Admin: 08/01/16 05:00 Dose: 100 mls/hr Sodium Chloride (Sodium Chloride 0.9%) 1,000 mls @ 100 mls/hr IV .Q10H [facility] Last Admin: 08/01/16 09:09 Dose: 100 mls/hr Morphine Sulfate (Morphine) 1 mg IVP Q4 PRN PRN Reason: moderate pain Last Admin: 08/01/16 09:18 Dose: 1 mg Ondansetron HCl (Zofran Inj) 4 mg IVP Q4 PRN PRN Reason: Nausea/Vomiting Last Admin: 08/01/16 09:00 Dose: 4 mg Pantoprazole Sodium (Protonix Inj) 40 mg IVP DAILY [facility] Last Admin: 08/01/16 09:19 Dose: 40 mg Prednisone (Prednisone Tab) 5 mg PO BID [facility] Last Admin: 08/01/16 09:20 Dose: 5 mg Sucralfate (Carafate Oral Susp) 1 gm PO TID PRN PRN Reason: Dyspepsia Last Admin: 07/29/16 05:39 Dose: 1 gm - Labs Labs: 08/01/16 07:45 08/01/16 07:45 PT 11.3 Seconds (9.9-11.8) 07/29/16 22:02 INR 1.05 (0.93-1.08) 07/29/16 22:02 Attending/Attestation - Attestation I have personally seen and examined this patient.: Yes I have fully participated in the care of the patient.: Yes I have reviewed all pertinent clinical information, including history, physical exam and plan: Yes Notes (Text): I have seen and examined patient at bedside. This is 31 year old female with history of SLE, HTN who presented with right flank pain and found to have acute pyelonephritis. CT abd/pelvis revealed evidence of gustavo-nephric inflammation. Blood culture is growing GNR. Urine culture pending. She is pen allergic and will change abx to azactam. Patient also had acute kidney injury which has resolved secondary to pre renal etiology. Will continue IVF. Continue hydroxychloroquine and prednisone. Continue norvasc. Upon discharge patient will follow up with Dr Gomez. Dr Kirk Miranda
[2016-07-30 09:41] LABS: ALB/GLOB RATIO 0.8 (1.1-1.8); ALKALINE PHOSPHATASE 274 U/L (38-133); ALT/SGPT 46 U/L (7-56); AST/SGOT 76 U/L (15-39); BILIRUBIN,TOTAL 0.4 mg/dL (0.2-1.3); BLOOD UREA NITROGEN 16 mg/dL (7-21); CALCIUM 8.5 mg/dL (8.4-10.5); CARBON DIOXIDE 18 mmol/L (21-33); CHLORIDE 110 mmol/L (95-110); GFR AFRICAN-AMERICAN > 60; GLUCOSE,RANDOM 79 mg/dL (70-110); POTASSIUM 4.4 mmol/L (3.6-5.0); SODIUM 136 mmol/L (132-148)
[2016-07-30] MEDS ORDERED: Ciprofloxacin 400mg/200ml D5W 400 MG/200 ML BAG IVPB SCH (10:00)
[2016-07-30] MEDS ORDERED: Aztreonam 1 Gm in NS 100mL 100 ML IVPB SCH (14:00)
[2016-07-30] MEDS: Aztreonam 1 Gm in NS 100mL 100 ML IV SCH (21:49)
--- NOTE | 2016-07-31 02:52 | CON ---
DATE: 07/30/2016 LOCATION: The patient seen earlier today in room 366, bed 3. CHIEF COMPLAINT: Positive blood cultures x 1 day. HISTORY OF PRESENT ILLNESS: This is a 31-year-old female with past medical history significant for l upus and was admitted with right-sided flank pain. The patient had generalized abdominal pain. No n ausea, no vomiting. She felt that she had chills and she did not have any headaches or blurred visio n, no neck pain, no sore throat. Most of her symptoms have been last 3-4 days. Most of it is the ri ght flank pain that she is complaining of. PAST MEDICAL HISTORY: Lupus, arthritis, hypertension, depression, anxiety. PAST SURGICAL HISTORY: Significant for and bilateral hip replacement. ALLERGIES: THE PATIENT IS ALLERGIC TO PENICILLIN. She states she does not know what type of allergy she has. She was told by her mother that she had a reaction of some kind as a child, not to take an y PENICILLIN. MEDICATIONS AT HOME: Include prednisone, azathioprine, hydroxychloroquine, Norvasc and vitamins. PHYSICAL EXAMINATION: GENERAL: The patient is in bed in no acute distress, answering questions appropriately. VITAL SIGNS: Temperature 99.7, heart rate of 98. The heart rate was up to 114, respiratory rate was 22, blood pressure is 100/60, saturation of 93%. HEENT: Unremarkable. NECK: Supple. LUNGS: Decreased breath sounds. HEART: Normal S1, S2. ABDOMEN: Soft, nontender, no organomegaly, no rebound. There is right-sided flank tenderness, CVA t enderness. LABORATORY EXAMINATION: Reveals the patient's white count of 16,000 is down to 8.3, hemoglobin of 11 , platelets of 157. BUN of 16, creatinine is down to 0.9. Initial BUN of 44 and a creatinine of 3.3 . Urinalysis initially too numerous to count WBCs. Microbiology reveals a gram-negative andie in the blood and a gram-negative andie in the urine. ASSESSMENT AND PLAN: A 31-year-old female with lupus, arthritis, hypertension, depression, anxiety, on immunosuppressive medications, presenting with severe sepsis with gram-negative andie bacteremia and gram-negative andie in the urine, right-sided pyelonephritis with acute kidney injury. With gram-nega tive andie bacteremia, we will check on the identification of the gram-negative andie in the urine and bl ood. In the case of PENICILLIN ALLERGY, unknown type, we will continue to treat the patient with azt reonam pending identification and sensitivity of organism. The patient did have a CAT scan of the ab domen and pelvis and lower lobes and also recommend an HIV test. She has 1 child. She is . There is right perinephric stranding on the CAT scan of the abdomen consistent with pyelonephritis. Mega Barbosa MD cc: 350 TT: 07/31/2016 02:51:10 Confirmation # [id number] Dictation # [id number] mn
[2016-07-31] MEDS: Aztreonam 1 Gm in NS 100mL 100 ML IV SCH ×3 (05:59→21:47)
[2016-07-31] MEDS: Morphine 4 mg/ml ISec IVP PRN ×2 (06:09→13:32)
[2016-07-31 07:47] LABS: BASO # 0.01 K/mm3 (0.0-2.0); BASO % 0.2 % (0.0-3.0); GRAN # 5.11 (1.4-6.5); GRAN % 78.7 % (50.0-68.0); HEMATOCRIT 24.7 % (36.0-48.0); LYMPH # 0.3 (1.2-3.4); LYMPH % 4.5 % (22.0-35.0); MEAN CELL VOLUME 93.2 fL (80.0-105.0); MEAN CORPUSCULAR HEMOGLOBIN 30.9 pg (25.0-35.0); MEAN CORPUSCULAR HGB CONC 33.2 g/dl (31.0-37.0); MEAN PLATELET VOLUME 11.3 fl (7.0-11.0); MONO # 1.1 (0.1-0.6); PLATELET COUNT 133 10^3/uL (120.0-450.0); WHITE BLOOD COUNT 6.5 10^3/ul (4.5-11.0)
[2016-07-31 08:16] LABS: ALB/GLOB RATIO 0.8 (1.1-1.8); ALKALINE PHOSPHATASE 227 U/L (38-133); ALT/SGPT 44 U/L (7-56); AST/SGOT 66 U/L (15-39); BILIRUBIN,TOTAL 0.4 mg/dL (0.2-1.3); BLOOD UREA NITROGEN 12 mg/dL (7-21); CALCIUM 8.4 mg/dL (8.4-10.5); CARBON DIOXIDE 18 mmol/L (21-33); CHLORIDE 114 mmol/L (95-110); GFR AFRICAN-AMERICAN > 60; GLUCOSE,RANDOM 77 mg/dL (70-110); POTASSIUM 3.9 mmol/L (3.6-5.0); SODIUM 138 mmol/L (132-148); TOTAL PROTEIN 5.7 g/dL (5.8-8.3)
[2016-07-31 08:52] LABS: ADD MANUAL DIFF? NO
[2016-07-31 08:53] LABS: MONO % 16.6 % (1.0-6.0)
--- NOTE | 2016-07-31 09:56 | CP.PCM.PN ---
<Mundo Finn - Last Filed: 07/31/16 14:24> Subjective - Date & Time of Evaluation Date of Evaluation: 07/31/16 Time of Evaluation: 09:51 - Subjective Subjective: Patient seen and examined. Complaining of subjective fever and chills this morning. 1 episode of non-bilious/non-bloody vomiting. Abdominal pain is improved today. Tolerating diet and PO liquids. Afebrile. Objective - Vital Signs/Intake and Output Vital Signs (last 24 hours): Temp Pulse Resp BP Pulse Ox 99.7 F H 102 H 20 139/90 98 07/31/16 08:16 07/31/16 08:16 07/31/16 08:16 07/31/16 08:16 07/31/16 08:16 Intake and Output: 07/31/16 07/31/16 06:59 18:59 Intake Total 1080 0 Output Total 150 60 Balance 930 -60 - Medications Medications: Current Medications Acetaminophen (Tylenol 325mg Tab) 650 mg PO Q6H PRN PRN Reason: Fever >100.4 F Last Admin: 07/31/16 06:08 Dose: 650 mg Amlodipine Besylate (Norvasc) 5 mg PO DAILY [facility] Last Admin: 07/30/16 09:34 Dose: 5 mg Azathioprine (Imuran) 50 mg PO DAILY [facility] Last Admin: 07/30/16 09:33 Dose: 50 mg Hydroxychloroquine Sulfate (Plaquenil) 200 mg PO BID [facility] Last Admin: 07/30/16 16:59 Dose: 200 mg Sodium Chloride (Sodium Chloride 0.9%) 1,000 mls @ 150 mls/hr IV .Q6H40M [facility] Last Admin: 07/30/16 03:59 Dose: 150 mls/hr Aztreonam (Azactam 1 Gm) 100 mls @ 100 mls/hr IV Q8 [facility] PRN Reason: Protocol Stop: 08/13/16 22:01 Last Admin: 07/31/16 05:59 Dose: 100 mls/hr Morphine Sulfate (Morphine) 4 mg IVP Q3H PRN PRN Reason: moderate pain Last Admin: 07/31/16 06:09 Dose: 4 mg Ondansetron HCl (Zofran Inj) 4 mg IVP Q4 PRN PRN Reason: Nausea/Vomiting Last Admin: 07/29/16 09:54 Dose: 4 mg Pantoprazole Sodium (Protonix Inj) 40 mg IVP DAILY [facility] Last Admin: 07/30/16 09:33 Dose: 40 mg Prednisone (Prednisone Tab) 5 mg PO BID [facility] Last Admin: 07/30/16 16:59 Dose: 5 mg Sucralfate (Carafate Oral Susp) 1 gm PO TID PRN PRN Reason: Dyspepsia Last Admin: 07/29/16 05:39 Dose: 1 gm - Labs Labs: 07/31/16 07:00 07/31/16 07:00 PT 11.3 Seconds (9.9-11.8) 07/29/16 22:02 INR 1.05 (0.93-1.08) 07/29/16 22:02 - Constitutional Appears: Non-toxic, No Acute Distress - Head Exam Head Exam: ATRAUMATIC, NORMOCEPHALIC - Eye Exam Eye Exam: EOMI, PERRL - ENT Exam ENT Exam: Mucous Membranes Moist - Neck Exam Neck Exam: Normal Inspection. absent: Lymphadenopathy - Respiratory Exam Respiratory Exam: Clear to Ausculation Bilateral. absent: Rales, Rhonchi - Cardiovascular Exam Cardiovascular Exam: REGULAR RHYTHM, +S1, +S2 - GI/Abdominal Exam GI & Abdominal Exam: Soft, Tenderness (Right upper and lower quadrants ), Normal Bowel Sounds - Back Exam Back Exam: CVA tenderness (R) - Neurological Exam Neurological Exam: Alert, Awake, Oriented x3 - Psychiatric Exam Psychiatric exam: Normal Affect, Normal Mood - Skin Skin Exam: Dry, Warm Assessment and Plan - Assessment and Plan (Free Text) Assessment: 31 y/o female with a PMHx SLE, Htn who presents to the ED with acute pyelonephritis. CT abd/pelvis reveals evidence of gustavo-nephric inflammation. UA suggests infection. Blood cultures are growing gram + rods. ID is following. Echo is pending. Patient started on Aztreonam. Transaminitis is improving. Renal function is stable. Right sided pyelonephritis - Aztreonam 1gm q8 day #2 - ID is following - will continue current management - Morphine decreased to 2mg q3 - zofran for nausea - tolerating deit Bacteremia - gram negative rods growing x2 cultures - repeat culture - ID following - continue current abx - echo read pending GENOVEVA - pre-renal 2/2 decreased PO intake coupled with vomiting. acute injury is resolved - renal function is improved - continue IVF - avoid nephrotoxic meds - continue to monitor SLE - c/w hydroxychloroqine and prednisone daily Htn - c/w amlodipine po daily PPX - protonix 40mg daily - scd's <Kirk Miranda B - Last Filed: 08/01/16 18:42> Objective - Vital Signs/Intake and Output Vital Signs (last 24 hours): Temp Pulse Resp BP Pulse Ox 102.7 F H 120 H 19 137/73 94 L 08/01/16 09:00 08/01/16 09:21 08/01/16 06:00 08/01/16 09:21 08/01/16 06:00 Intake and Output: 08/01/16 08/01/16 06:59 18:59 Intake Total 900 240 Balance 900 240 - Medications Medications: Current Medications Amlodipine Besylate (Norvasc) 5 mg PO DAILY [facility] Last Admin: 08/01/16 09:21 Dose: 5 mg Azathioprine (Imuran) 50 mg PO DAILY [facility] Last Admin: 07/31/16 09:55 Dose: 50 mg Hydroxychloroquine Sulfate (Plaquenil) 200 mg PO BID [facility] Last Admin: 08/01/16 09:20 Dose: 200 mg Aztreonam (Azactam 1 Gm) 100 mls @ 100 mls/hr IV Q8 [facility] PRN Reason: Protocol Stop: 08/13/16 22:01 Last Admin: 08/01/16 05:00 Dose: 100 mls/hr Sodium Chloride (Sodium Chloride 0.9%) 1,000 mls @ 100 mls/hr IV .Q10H [facility] Last Admin: 08/01/16 09:09 Dose: 100 mls/hr Morphine Sulfate (Morphine) 1 mg IVP Q4 PRN PRN Reason: moderate pain Last Admin: 08/01/16 09:18 Dose: 1 mg Ondansetron HCl (Zofran Inj) 4 mg IVP Q4 PRN PRN Reason: Nausea/Vomiting Last Admin: 08/01/16 09:00 Dose: 4 mg Pantoprazole Sodium (Protonix Inj) 40 mg IVP DAILY [facility] Last Admin: 08/01/16 09:19 Dose: 40 mg Prednisone (Prednisone Tab) 5 mg PO BID [facility] Last Admin: 08/01/16 09:20 Dose: 5 mg Sucralfate (Carafate Oral Susp) 1 gm PO TID PRN PRN Reason: Dyspepsia Last Admin: 07/29/16 05:39 Dose: 1 gm - Labs Labs: 08/01/16 07:45 08/01/16 07:45 PT 11.3 Seconds (9.9-11.8) 07/29/16 22:02 INR 1.05 (0.93-1.08) 07/29/16 22:02 Attending/Attestation - Attestation I have personally seen and examined this patient.: Yes I have fully participated in the care of the patient.: Yes I have reviewed all pertinent clinical information, including history, physical exam and plan: Yes Notes (Text): I have seen and examined patient at bedside. This is 31 year old female with history of SLE, HTN who presented with right flank pain and found to have acute pyelonephritis. CT abd/pelvis revealed evidence of gustavo-nephric inflammation. Blood culture is growing GNR. Urine culture pending. She is pen allergic and will change abx to azactam. Patient also had acute kidney injury which has resolved secondary to pre renal etiology. Will continue IVF. Continue hydroxychloroquine and prednisone. Continue norvasc. Upon discharge patient will follow up with Dr Gomez. Dr Kirk Miranda
--- NOTE | 2016-07-31 09:57 | CARD ---
APPROVED REPORT EXAM: Two-dimensional and M-mode echocardiogram with Doppler and color Doppler. Other Information Quality : AverageRhythm : INDICATION (+) bacterial culture 2D DIMENSIONS Left Atrium (2D)3.0 (1.6-4.0cm)IVSd1.2 (0.7-1.1cm) Aortic Root (2D)2.8 (2.0-3.7cm)LVDd3.3 (3.9-5.9cm) PWd1.2 (0.7-1.1cm)LVDs2.1 (2.5-4.0cm) FS (%) 37.1 %LVEF (%)68.0 (>50%) M-Mode DIMENSIONS Aortic Cusp Exc.1.60 (1.5-2.0cm) Aortic Valve AoV Peak [id number]/s Mitral Valve MV E Ugualbqs67.0cm/sMV A Ycmctudo44.4cm/sE/A ratio0.9 TDI Lateral E' Peak V14.10cm/sMedial E' Peak V6.24cm/sE/Lateral E'5.3 E/Medial E'12.0 Tricuspid Valve TR Peak [id number]/sRAP [id number] Peak Gr.77mmHg [id number] LEFT VENTRICLE The left ventricle is normal size. There is mild concentric left ventricular hypertrophy. The left ventricular function is normal. The left ventricular ejection fraction is within the normal range. The septum is flattened with abnormal motion c/w pressure/volume overload RIGHT VENTRICLE The right ventricle is moderately dilated. ATRIA The left atrium size is normal. The right atrium is moderately dilated. The interatrial septum is intact with no evidence for an atrial septal defect. AORTIC VALVE The aortic valve is normal in structure. MITRAL VALVE The mitral valve is normal in structure. Mitral regurgitation is trace. TRICUSPID VALVE The tricuspid valve is normal in structure. There is moderate to severe tricuspid regurgitation. There is severe pulmonary hypertension. PULMONIC VALVE The pulmonic valve is not well visualized. GREAT VESSELS The aortic root is normal in size. PERICARDIAL EFFUSION There is no pericardial effusion. <Conclusion> The left ventricle is normal size. There is mild concentric left ventricular hypertrophy. The left ventricular function is normal. The septum is flattened with abnormal motion c/w pressure/volume overload The right ventricle is moderately dilated. The right atrium is moderately dilated. There is moderate to severe tricuspid regurgitation. There is severe pulmonary hypertension.
[2016-07-31] MEDS: Sodium Chloride 0.9% 1,000 ML IV SCH ×2 (14:58→22:00)
--- NOTE | 2016-07-31 17:34 | CP.PCM.PN ---
Subjective - Date & Time of Evaluation Date of Evaluation: 07/31/16 Time of Evaluation: 09:40 - Subjective Subjective: Less right flank pain, no fevers overnight, no nausea or vomiting. Objective - Vital Signs/Intake and Output Vital Signs (last 24 hours): Temp Pulse Resp BP Pulse Ox 99.7 F H 102 H 20 134/90 98 07/31/16 08:16 07/31/16 09:52 07/31/16 08:16 07/31/16 09:52 07/31/16 08:16 Intake and Output: 07/31/16 07/31/16 06:59 18:59 Intake Total 1080 480 Output Total 150 1560 Balance 930 -1080 - Medications Medications: Current Medications Acetaminophen (Tylenol 325mg Tab) 650 mg PO Q6H PRN PRN Reason: Fever >100.4 F Last Admin: 07/31/16 13:28 Dose: 650 mg Amlodipine Besylate (Norvasc) 5 mg PO DAILY [facility] Last Admin: 07/31/16 09:52 Dose: 5 mg Azathioprine (Imuran) 50 mg PO DAILY [facility] Last Admin: 07/31/16 09:55 Dose: 50 mg Hydroxychloroquine Sulfate (Plaquenil) 200 mg PO BID [facility] Last Admin: 07/31/16 17:06 Dose: 200 mg Aztreonam (Azactam 1 Gm) 100 mls @ 100 mls/hr IV Q8 [facility] PRN Reason: Protocol Stop: 08/13/16 22:01 Last Admin: 07/31/16 15:10 Dose: 100 mls/hr Sodium Chloride (Sodium Chloride 0.9%) 1,000 mls @ 100 mls/hr IV .Q10H [facility] Last Admin: 07/31/16 14:58 Dose: 100 mls/hr Morphine Sulfate (Morphine) 2 mg IVP Q3H PRN PRN Reason: moderate pain Ondansetron HCl (Zofran Inj) 4 mg IVP Q4 PRN PRN Reason: Nausea/Vomiting Last Admin: 07/29/16 09:54 Dose: 4 mg Pantoprazole Sodium (Protonix Inj) 40 mg IVP DAILY [facility] Last Admin: 07/31/16 09:53 Dose: 40 mg Prednisone (Prednisone Tab) 5 mg PO BID [facility] Last Admin: 07/31/16 17:06 Dose: 5 mg Sucralfate (Carafate Oral Susp) 1 gm PO TID PRN PRN Reason: Dyspepsia Last Admin: 07/29/16 05:39 Dose: 1 gm - Labs Labs: 07/31/16 07:00 07/31/16 07:00 PT 11.3 Seconds (9.9-11.8) 07/29/16 22:02 INR 1.05 (0.93-1.08) 07/29/16 22:02 - Constitutional Appears: Non-toxic, No Acute Distress - Head Exam Head Exam: NORMAL INSPECTION - ENT Exam ENT Exam: Mucous Membranes Moist - Neck Exam Neck Exam: absent: Lymphadenopathy, Meningismus - Respiratory Exam Respiratory Exam: Decreased Breath Sounds - Cardiovascular Exam Cardiovascular Exam: +S1, +S2 - GI/Abdominal Exam GI & Abdominal Exam: Soft. absent: Tenderness Assessment and Plan - Assessment and Plan (Free Text) Plan: Assessment Severe sepsis with acute renal failure due to E. coli bacteremia from acute right sided pyelonephritis, slowly improving systemic lupus erythematosus HTN depression S/P bilateral hip replacement Plan Continue Azactam (day 2); repeat blood cx are negative; will check EKG to make sure there is no QTc prolongation - if QT segment is normal, we can change to Ciprofloxacin to complete a 10-14 day course will follow clinically
[2016-07-31] MEDS: Morphine 2 mg/ml ISec IVP PRN ×2 (18:10→21:47)
[2016-08-01] MEDS: Morphine 2 mg/ml ISec IVP PRN ×3 (04:24→17:25)
[2016-08-01] MEDS: Aztreonam 1 Gm in NS 100mL 100 ML IV SCH ×2 (05:00→14:00)
[2016-08-01 08:01] LABS: ADD MANUAL DIFF? NO
[2016-08-01 08:08] LABS: BASO # 0.01 K/mm3 (0.0-2.0); BASO % 0.1 % (0.0-3.0); GRAN # 5.59 (1.4-6.5); GRAN % 79.3 % (50.0-68.0); HEMATOCRIT 24.1 % (36.0-48.0); LYMPH # 0.5 (1.2-3.4); LYMPH % 7.1 % (22.0-35.0); MEAN CELL VOLUME 92.3 fL (80.0-105.0); MEAN CORPUSCULAR HGB CONC 33.6 g/dl (31.0-37.0); MEAN PLATELET VOLUME 10.6 fl (7.0-11.0); MONO % 13.5 % (1.0-6.0); PLATELET COUNT 152 10^3/uL (120.0-450.0); WHITE BLOOD COUNT 7.1 10^3/ul (4.5-11.0)
[2016-08-01 08:28] LABS: IRON 23 ug/dL (45-180)
[2016-08-01 08:56] LABS: ALB/GLOB RATIO 0.8 (1.1-1.8); ALKALINE PHOSPHATASE 227 U/L (38-133); ALT/SGPT 51 U/L (7-56); AST/SGOT 48 U/L (15-39); BILIRUBIN,TOTAL 0.4 mg/dL (0.2-1.3); BLOOD UREA NITROGEN 9 mg/dL (7-21); CALCIUM 8.4 mg/dL (8.4-10.5); CARBON DIOXIDE 18 mmol/L (21-33); CHLORIDE 112 mmol/L (95-110); GFR AFRICAN-AMERICAN > 60; GLUCOSE,RANDOM 78 mg/dL (70-110); POTASSIUM 3.4 mmol/L (3.6-5.0); SODIUM 138 mmol/L (132-148); TOTAL PROTEIN 5.9 g/dL (5.8-8.3)
[2016-08-01] MEDS: Sodium Chloride 0.9% 1,000 ML IV SCH (09:09)
--- NOTE | 2016-08-01 10:23 | CARD ---
APPROVED REPORT EKG Measurement Heart [id number] <Conclusion> Normal sinus rhythm Rightward axis T wave abnormality, consider anterior ischemia Prolonged QT
--- NOTE | 2016-08-01 12:46 | CP.PCM.PN ---
Subjective - Date & Time of Evaluation Date of Evaluation: 08/01/16 Time of Evaluation: 08:30 - Subjective Subjective: I have seen and examined patient at bedside. Complains of diffuse pain in the abdomen and in the right flank. Had fever this morning along with nausea and vomiting. Objective - Vital Signs/Intake and Output Vital Signs (last 24 hours): Temp Pulse Resp BP Pulse Ox 98.3 F 102 H 20 126/92 H 95 07/31/16 16:00 07/31/16 16:00 07/31/16 16:00 07/31/16 16:00 07/31/16 16:00 Intake and Output: 08/01/16 08/01/16 06:59 18:59 Intake Total 900 Balance 900 - Medications Medications: Current Medications Amlodipine Besylate (Norvasc) 5 mg PO DAILY [facility] Last Admin: 07/31/16 09:52 Dose: 5 mg Azathioprine (Imuran) 50 mg PO DAILY [facility] Last Admin: 07/31/16 09:55 Dose: 50 mg Hydroxychloroquine Sulfate (Plaquenil) 200 mg PO BID [facility] Last Admin: 07/31/16 17:06 Dose: 200 mg Aztreonam (Azactam 1 Gm) 100 mls @ 100 mls/hr IV Q8 [facility] PRN Reason: Protocol Stop: 08/13/16 22:01 Last Admin: 08/01/16 05:00 Dose: 100 mls/hr Sodium Chloride (Sodium Chloride 0.9%) 1,000 mls @ 100 mls/hr IV .Q10H [facility] Last Admin: 07/31/16 22:00 Dose: 100 mls/hr Morphine Sulfate (Morphine) 1 mg IVP Q4 PRN PRN Reason: moderate pain Ondansetron HCl (Zofran Inj) 4 mg IVP Q4 PRN PRN Reason: Nausea/Vomiting Last Admin: 07/29/16 09:54 Dose: 4 mg Pantoprazole Sodium (Protonix Inj) 40 mg IVP DAILY [facility] Last Admin: 07/31/16 09:53 Dose: 40 mg Prednisone (Prednisone Tab) 5 mg PO BID [facility] Last Admin: 07/31/16 17:06 Dose: 5 mg Sucralfate (Carafate Oral Susp) 1 gm PO TID PRN PRN Reason: Dyspepsia Last Admin: 06/07/17 05:39 Dose: 1 gm - Labs Labs: 08/01/16 07:45 07/31/16 07:00 PT 11.3 Seconds (9.9-11.8) 07/29/16 22:02 INR 1.05 (0.93-1.08) 07/29/16 22:02 - Constitutional Appears: Other (Young female in moderate distress) - Head Exam Head Exam: ATRAUMATIC, NORMAL INSPECTION, NORMOCEPHALIC - Eye Exam Eye Exam: EOMI, Normal appearance Pupil Exam: PERRL - ENT Exam ENT Exam: Mucous Membranes Moist - Neck Exam Neck Exam: Full ROM, Normal Inspection - Respiratory Exam Respiratory Exam: Clear to Ausculation Bilateral, NORMAL BREATHING PATTERN - Cardiovascular Exam Cardiovascular Exam: REGULAR RHYTHM, +S1, +S2 Additional comments: Systolic murmur - GI/Abdominal Exam GI & Abdominal Exam: Soft, Tenderness (diffuse abdominal tenderness. ), Normal Bowel Sounds - Rectal Exam Rectal Exam: Deferred - Extremities Exam Extremities Exam: Full ROM, Normal Capillary Refill, Normal Inspection - Back Exam Back Exam: Full ROM, NORMAL INSPECTION. absent: CVA tenderness (L), CVA tenderness (R) - Neurological Exam Neurological Exam: Alert, Awake, CN II-XII Intact, Normal Gait, Oriented x3 Neuro motor strength exam: Left Upper Extremity: 5, Right Upper Extremity: 5, Left Lower Extremity: 5, Right Lower Extremity: 5 - Psychiatric Exam Psychiatric exam: Normal Affect, Normal Mood - Skin Skin Exam: Dry, Intact, Normal Color, Warm Assessment and Plan - Assessment and Plan (Free Text) Plan: 31 year old female with history of SLE, HTN who presented with right flank pain and found to have acute pyelonephritis. 1-Acute pyelonephritis: CT abd/pelvis revealed evidence of gustavo-nephric inflammation. Blood and Urine culture is growing EColi. She is pen allergic and is on azactam. She spiked fever today and complained of moderate to severe pain in abdomen. There is a concern for renal abscess. I want to avoid CT with contrast as patient just recovered from renal insufficiency caused by pre- renal. Will order for CT without contrast. Continue zofran, IVF and taper analgesics. 2-Ecoli Bacteremia: continue azactam. Repeat blood cultures are negative. ID on board. 3-Acute kidney injury: Resolved. IVF were decerased yesterday. 4-SLE: Continue hydroxychloroquine and prednisone. 5-HTN: Continue norvasc. 6-GI prophylaxis: Continue protonix. 7-DVT prophylaxis: continue SCD's. 8-Mid systolic click vs systolic murmur on physical exam: Awaiting echocardiogram. 9-Dispo: Upon discharge patient will follow up with Dr mitchell. ADDENDUM: CT scan showed ascites and suspicion of acalculous cholecystitis. Discussed with ID, GI and surgery team. Antibiotics changed to meropenem. Awaiting Surgery consult.
[2016-08-01] MEDS ORDERED: Potassium Chloride 20 mEq ER Tab PO ONE ×2 (14:38→17:30)
--- NOTE | 2016-08-01 15:15 | CT ---
PROCEDURE: CT Abdomen and Pelvis without intravenous contrast HISTORY: pyelonephritis - r/o perirenal abscess COMPARISON: None. TECHNIQUE: Unenhanced study. Neither oral nor intravenous contrast administered. She Radiation dose: Total exam DLP = 232.87 mGy-cm. This CT exam was performed using one or more of the following dose reduction techniques: Automated exposure control, adjustment of the mA and/or kV according to patient size, and/or use of iterative reconstruction technique. FINDINGS: LOWER THORAX: Trace bilateral pleural effusions which are new. Adjacent atelectasis in the left lower lobe noted. LIVER: Hepatic steatosis. No focal masses. No intrahepatic bile duct dilatation or perihepatic ascites. GALLBLADDER AND BILE DUCTS: Gallbladder wall thickening and pericholecystic fluid. Despite the absence of gallstones identified on this study or prior CT as well as abdominal ultrasound cholecystitis should be considered. PANCREAS: Unremarkable. No gross lesion or ductal dilatation. SPLEEN: Unremarkable. ADRENALS: Unremarkable. No mass. KIDNEYS AND URETERS: No focal abnormalities in the kidneys. There is perinephric stranding canal bilaterally. No evidence of obstructive uropathy. No focal urinoma identified. VASCULATURE: Unremarkable. No aortic aneurysm. BOWEL: Unremarkable. No obstruction. No gross mural thickening. APPENDIX: Unremarkable. Normal appendix. PERITONEUM: Intraperitoneal fluid subhepatic space and pelvis. Diffuse anasarca S/subcutaneous edema also noted. These all represent new findings compared to the prior study. LYMPH NODES: Unremarkable. No enlarged lymph nodes. BLADDER: Unremarkable. REPRODUCTIVE: Unremarkable. BONES: No acute fracture. OTHER FINDINGS: None. IMPRESSION: 1. Subcutaneous, cutaneous Edema, anasarca. 2. New low volume ascites in the abdomen and pelvis. 3. Perinephric stranding which is likely part of the more systemic process contributing to the appearance of edema Chem anasarca and fluid in the pelvis and abdomen. 4. Edematous changes within the gallbladder wall and pericholecystic fluid. In the appropriate clinical setting acalculous cholecystitis should be considered. However, these findings may in part be related to edema at and the skin and subcutaneous tissues/ anasarca. Fluid in the abdomen and pelvis. 5. Bilateral LAVINIA.
[2016-08-01] MEDS: Meropenem 1g/NS 100mL IVPB 1 GM/100 ML PIGGYBACK IVPB SCH ×2 (17:34→21:39)
--- NOTE | 2016-08-01 18:25 | PN ---
DATE: 08/01/2016 The patient is in bed now with a new fever. She states she had a difficult night last night and cont inues to have right flank pain. PHYSICAL EXAMINATION: VITAL SIGNS: Temperature is 102.7, heart rate of 120 and 94% saturation, respiratory rate of 20 and blood pressure is 130/70. HEENT: Unremarkable. NECK: Supple. LUNGS: Are decreased breath sounds. HEART: Normal S1, S2. ABDOMEN: Soft and nontender. LABORATORY EXAMINATION: Reveals a white count of 7.1, hemoglobin of 8 and platelets of 152. Coagula tion is noted. Chemistries reveal the BUN of 9 and creatinine of 0.8. Urinalysis is noted. Serolog y is negative. HIV negative. Hepatitis microbiology reveals E. coli in the urine, pansensitive E. c ashley and E. coli in the blood, also pansensitive. Repeat blood cultures from the are negative. T he patient had a CAT scan of the abdomen and pelvis today, which was without p.o. or IV contrast. Dr Wendie Miranda's note is reviewed. ASSESSMENT AND PLAN: This is a 31-year-old female who has a history of lupus, hypertension, depressi on and history of bilateral hip replacement, admitted with severe sepsis, Escherichia coli bacteremia and Escherichia coli in the urine and Escherichia coli right pyelonephritis, now with a new fever an d abdominal discomfort and a CAT scan is noted. Will repeat blood cultures, urinalysis and urine cul ture, procalcitonin and sputum cultures. Concern about an elevated alk phos, will order an abdominal ultrasound of the common bile duct. The patient had an abdominal ultrasound on the . Common joy e duct: There was no dilatation. However, there is a new increase in alk phos. Will treat with lillian penem and order an ultrasound of the common bile duct, repeat mi cultures, discontinue the Azactam a nd check on procalcitonin and will make further recommendations and check on repeat urinalysis and u rine culture. Mega Barbosa MD cc: 350 TT: 08/01/2016 18:25:09 Confirmation # [id number] Dictation # [id number]
--- NOTE | 2016-08-01 18:57 | CP.PCM.CON ---
History of Present Illness - History of Present Illness History of Present Illness: Surgery Consult: Dr. Shannon Pt is a 31F with PMHx significant for SLE who presented to [facility] on 07/28/16 for right sided flank and abdominal pain associated with fevers of 1 week duration. Pt was found to have a +UA with findings suggestive of acute pyelonephritis on CT scan for she was admitted and started on IV ABX. Since being in the hospital pt's white count has normalized, however she continues to have on/off pain with fevers and chills. Pt also admits to bilious vomiting in the morning which she doesn't correlate with food intake. She states she has been tolerating the soft diet that she's on. A CT abdomen/pelvis was repeated today and shows ascites with some fluid around GB that maybe suspicious for acalculous cholecystitis. Of note, pt's initial CT abdomen and US were both negative for any GB pathology. Surgery has been consulted to evaluate. Currently, pt is resting comfortably in bed. States she continues to have pain on the right side of her abdomen with fevers/chills. Denies N/V at this time. Denies other complaints. PMHx: SLE, HTN PSHx: b/l hip replacements, x 1 SocialHx: former smoker; denies alcohol/drugs ALL: Penicillins Review of Systems - Review of Systems All systems: reviewed and no additional remarkable complaints except (as per HPI ) Past Patient History - Past Medical History & Family History Past Medical History?: Yes Past Family History: Reviewed and not pertinent - Past Social History Smoking Status: Former Smoker - CARDIAC Hx Hypertension: Yes - RENAL Hx Chronic Kidney Disease: No - ENDOCRINE/METABOLIC Hx Systemic Lupus Erythematosus: Yes - HEMATOLOGICAL/ONCOLOGICAL Hx Blood Disorders: No - INTEGUMENTARY Hx Dermatological Problems: No - MUSCULOSKELETAL/RHEUMATOLOGICAL Hx Musculoskeletal Disorders: Yes Hx Arthritis: Yes Hx Back Pain: Yes Hx Falls: No - GASTROINTESTINAL Hx Gastrointestinal Disorders: No - GENITOURINARY/GYNECOLOGICAL Hx Genitourinary Disorders: No - PSYCHIATRIC Hx Substance Use: No - SURGICAL HISTORY Hx Section: Yes Hx Joint Replacement: Yes (Bilateral Hip) - ANESTHESIA Hx Anesthesia: Yes Hx Anesthesia Reactions: No Meds Allergies/Adverse Reactions: Allergies Allergy/AdvReac Type Severity Reaction Status Date / Time Penicillins Allergy ANAPHYLAXIS Verified 07/28/16 18:49 - Medications Medications: Current Medications Amlodipine Besylate (Norvasc) 5 mg PO DAILY [facility] Last Admin: 08/01/16 09:21 Dose: 5 mg Azathioprine (Imuran) 50 mg PO DAILY [facility] Last Admin: 08/01/16 10:40 Dose: 50 mg Hydroxychloroquine Sulfate (Plaquenil) 200 mg PO BID [facility] Last Admin: 08/01/16 17:25 Dose: 200 mg Meropenem 1g/NS 100mL IVPB (Meropenem 1g/Ns 100ml Ivpb) 1 gm in 100 mls @ 100 mls/hr IVPB Q8 [facility] PRN Reason: Protocol Stop: 08/10/16 17:03 Last Admin: 08/01/16 17:34 Dose: 100 mls/hr Morphine Sulfate (Morphine) 1 mg IVP Q4 PRN PRN Reason: moderate pain Last Admin: 08/01/16 17:25 Dose: 1 mg Ondansetron HCl (Zofran Inj) 4 mg IVP Q4 PRN PRN Reason: Nausea/Vomiting Last Admin: 08/01/16 17:23 Dose: 4 mg Pantoprazole Sodium (Protonix Inj) 40 mg IVP DAILY [facility] Last Admin: 08/01/16 09:19 Dose: 40 mg Prednisone (Prednisone Tab) 5 mg PO BID [facility] Last Admin: 08/01/16 17:35 Dose: 5 mg Sucralfate (Carafate Oral Susp) 1 gm PO TID PRN PRN Reason: Dyspepsia Last Admin: 07/29/16 05:39 Dose: 1 gm Physical Exam - Constitutional Appears: Well, No Acute Distress - Head Exam Head Exam: ATRAUMATIC, NORMOCEPHALIC - Eye Exam Eye Exam: Normal appearance - ENT Exam ENT Exam: Mucous Membranes Moist - Respiratory Exam Respiratory Exam: NORMAL BREATHING PATTERN - Cardiovascular Exam Cardiovascular Exam: RRR - GI/Abdominal Exam GI & Abdominal Exam: Distended, Guarding, Soft, Tenderness (RUQ, RLQ). absent: Rebound - Extremities Exam Extremities exam: Positive for: pedal edema. Negative for: tenderness - Neurological Exam Neurological exam: Alert, Oriented x3 - Skin Skin Exam: Dry, Intact, Warm Results - Vital Signs Recent Vital Signs: Last Vital Signs Temp 102.7 F H 08/01/16 09:00 Pulse 120 H 08/01/16 09:21 Resp 19 08/01/16 06:00 BP 137/73 08/01/16 09:21 Pulse Ox 94 L 08/01/16 06:00 - Labs Result Diagrams: 08/01/16 07:45 08/01/16 07:45 Labs: Laboratory Results - last 24 hr 07/31/16 08/01/16 08/01/16 07:00 07:45 07:45 WBC 7.1 RBC 2.61 L Hgb 8.1 L Hct 24.1 L MCV 92.3 MCH 31.0 MCHC 33.6 RDW 14.0 Plt Count 152 MPV 10.6 Gran % 79.3 H Lymph % (Auto) 7.1 L [place] % (Auto) 13.5 H Eos % (Auto) 0.0 L Baso % (Auto) 0.1 Gran # 5.59 Lymph # 0.5 L [place] # 1.0 H Eos # 0.0 Baso # 0.01 Sodium 138 Potassium 3.4 L Chloride 112 H Carbon Dioxide 18 L Anion Gap 11 BUN 9 Creatinine 0.8 Est GFR ( Amer) > 60 Est GFR (Non-Af Amer) > 60 Random Glucose 78 Calcium 8.4 Iron TIBC % Saturation Ferritin Total Bilirubin 0.4 AST 48 H ALT 51 Alkaline Phosphatase 227 H Total Protein 5.9 Albumin 2.6 L Globulin 3.3 Albumin/Globulin Ratio 0.8 L Vitamin B12 Folate HIV 1&2 Ag/Ab, 4th Gen Nonreactive 08/01/16 08/01/16 07:45 07:45 WBC RBC Hgb Hct MCV MCH MCHC RDW Plt Count MPV Gran % Lymph % (Auto) [place] % (Auto) Eos % (Auto) Baso % (Auto) Gran # Lymph # [place] # Eos # Baso # Sodium Potassium Chloride Carbon Dioxide Anion Gap BUN Creatinine Est GFR ( Amer) Est GFR (Non-Af Amer) Random Glucose Calcium Iron 23 L TIBC 217 L % Saturation 11 L Ferritin 91.5 Total Bilirubin AST ALT Alkaline Phosphatase Total Protein Albumin Globulin Albumin/Globulin Ratio Vitamin B12 > 1000 H Folate 8.0 HIV 1&2 Ag/Ab, 4th Gen - Imaging and Cardiology CT scan - abdomen Status: Image reviewed by me, Report reviewed by me US - abdomen Status: Image reviewed by me, Report reviewed by me Assessment & Plan - Assessment and Plan (Free Text) Assessment: 31F with abdominal/flank pain r/o acalculous cholecystitis Plan: - will f/u repeat abdomen US - at this time it is unclear whether pt's symptoms are related to her GB given normal findings just a few days ago - the ascites could be contributing to the +findings on the new CT scan - will continue to follow - d/w Dr. Mirtha Martinez, PGY-2 Surgery
[2016-08-01 20:51] LABS: URINE BILIRUBIN NEGATIVE (NEGATIVE); URINE BLOOD LARGE (NEGATIVE); URINE GLUCOSE (UA) NEGATIVE (NEGATIVE); URINE KETONE NEGATIVE (NEGATIVE); URINE LEUKOCYTE ESTERASE TRACE Leu/uL (NEGATIVE); URINE PROTEIN TRACE mg/dL (<30 mg/dL); URINE UROBILINOGEN 0.2 E.U./dL (<1 E.U./dL)
[2016-08-01 21:02] LABS: URINE APPEARANCE SL CLOUDY (CLEAR); URINE COLOR YELLOW (YELLOW)
[2016-08-01 21:04] LABS: URINE BACTERIA FEW (NEG)
[2016-08-02] MEDS: Morphine 2 mg/ml ISec IVP PRN ×4 (04:40→21:14)
[2016-08-02] MEDS: Meropenem 1g/NS 100mL IVPB 1 GM/100 ML PIGGYBACK IVPB SCH ×3 (05:54→21:13)
--- NOTE | 2016-08-02 07:38 | CP.PCM.CON ---
History of Present Illness - History of Present Illness History of Present Illness: Asked by hospitalist team for a GI consultation on this patient. 31 year old female with history of SLE who initially presented to hospital with complaint of RUQ abdominal and flank pain which has been present for the past two weeks. In hospital she is currently being treated for acute pyelonephritis. GI called for evaluation of potential acalculous cholecystitis based on recent CT imaging. She is seen lying in bed, complains of ongoing RUQ/flank pain 5/10 intensity and associated with nausea primarily in AM. She was able to tolerate ensure last night for dinner, though has a loss of appetite. No prior similar episodes. She denies prior endoscopic evaluation. Review of vitals from today shows low grade temperature. Social history: non-smoker, social ETOH use Family history: reviewed, patient denies GI malignancies Review of Systems - Review of Systems Review of Systems: - All other comprehensive 12 point review of systems performed, negative - Cardiovascular Cardiovascular: absent: Acrocyanosis, Chest Pain, Chest Pain at Rest, Chest Pain with Activity, Claudication, Diaphoresis, Dyspnea, Dyspnea on Exertion, Edema, Irregular Heart Rhythm, Pain Radiating to Arm/Neck/Jaw, Leg Edema, Leg Ulcers, Lightheadedness, Orthopnea, Palpitations, Paroxysmal Nocturnal Dyspnea, Pedal Edema, Radiating Pain, Rapid Heart Rate, Slow Heart Rate, Syncope, Other - Respiratory Respiratory: absent: As Per HPI, Cough, Dyspnea, Hemoptysis, Dyspnea on Exertion , Wheezing, Snoring, Stridor, Pain on Inspiration, Chest Congestion, Excessive Mucous Production, Change in Mucous Color, Pain with Coughing, Other - Gastrointestinal Gastrointestinal: Abdominal Pain, Nausea - Genitourinary Genitourinary: Dysuria - Musculoskeletal Musculoskeletal: absent: Abnormal Gait, Arthralgias, Atrophy, Back Pain, Deformity, Joint Swelling, Limited Range of Motion, Loss of Height, Muscle Cramps, Muscle Weakness, Myalgias, Neck Pain, Numbness, Radiating Pain into Limb , Stiffness, Tingling, Other - Neurological Neurological: absent: Abnormal Gait, Abnormal Hearing, Abnormal Movements, Abnormal Speech, Behavioral Changes, Burning Sensations, Confusion, Convulsions , Disequilibrium, Dizziness, Numbness, Focal Weakness, Frequent Falls, Headaches , Lack of Coordination, Loss of Vision, Memory Loss, Paresthesias, Radicular Pain, Restless Legs, Sensory Deficit, Syncope, Tingling, Tremor, Vertigo, Weakness, Other Visual Disturbances, Other Past Patient History - Past Medical History & Family History Past Medical History?: Yes Past Family History: Reviewed and not pertinent - Past Social History Smoking Status: Former Smoker - CARDIAC Hx Hypertension: Yes - PULMONARY Hx Respiratory Disorders: No - NEUROLOGICAL Hx Neurological Disorder: No - HEENT Hx HEENT Problems: No - RENAL Hx Chronic Kidney Disease: No - ENDOCRINE/METABOLIC Hx Systemic Lupus Erythematosus: Yes - HEMATOLOGICAL/ONCOLOGICAL Hx Blood Disorders: No - INTEGUMENTARY Hx Dermatological Problems: No - MUSCULOSKELETAL/RHEUMATOLOGICAL Hx Musculoskeletal Disorders: Yes Hx Arthritis: Yes Hx Back Pain: Yes Hx Falls: No - GASTROINTESTINAL Hx Gastrointestinal Disorders: No - GENITOURINARY/GYNECOLOGICAL Hx Genitourinary Disorders: No - PSYCHIATRIC Hx Substance Use: No - SURGICAL HISTORY Hx Section: Yes Hx Joint Replacement: Yes (Bilateral Hip) - ANESTHESIA Hx Anesthesia: Yes Hx Anesthesia Reactions: No Meds Allergies/Adverse Reactions: Allergies Allergy/AdvReac Type Severity Reaction Status Date / Time Penicillins Allergy ANAPHYLAXIS Verified 07/28/16 18:49 - Medications Medications: Current Medications Acetaminophen (Tylenol 325mg Tab) 650 mg PO Q6H PRN PRN Reason: Fever >100.4 F Last Admin: 08/02/16 04:39 Dose: 650 mg Amlodipine Besylate (Norvasc) 5 mg PO DAILY [facility] Last Admin: 08/01/16 09:21 Dose: 5 mg Azathioprine (Imuran) 50 mg PO DAILY [facility] Last Admin: 08/01/16 10:40 Dose: 50 mg Hydroxychloroquine Sulfate (Plaquenil) 200 mg PO BID [facility] Last Admin: 08/01/16 17:25 Dose: 200 mg Meropenem 1g/NS 100mL IVPB (Meropenem 1g/Ns 100ml Ivpb) 1 gm in 100 mls @ 100 mls/hr IVPB Q8 [facility] PRN Reason: Protocol Stop: 08/10/16 17:03 Last Admin: 08/02/16 05:54 Dose: 100 mls/hr Morphine Sulfate (Morphine) 1 mg IVP Q4 PRN PRN Reason: moderate pain Last Admin: 08/02/16 04:40 Dose: 1 mg Ondansetron HCl (Zofran Inj) 4 mg IVP Q4 PRN PRN Reason: Nausea/Vomiting Last Admin: 08/01/16 17:23 Dose: 4 mg Pantoprazole Sodium (Protonix Inj) 40 mg IVP DAILY [facility] Last Admin: 08/01/16 09:19 Dose: 40 mg Prednisone (Prednisone Tab) 5 mg PO BID [facility] Last Admin: 08/01/16 17:35 Dose: 5 mg Sucralfate (Carafate Oral Susp) 1 gm PO TID PRN PRN Reason: Dyspepsia Last Admin: 07/29/16 05:39 Dose: 1 gm Physical Exam - Constitutional Appears: Non-toxic, No Acute Distress - Head Exam Head Exam: NORMAL INSPECTION - Eye Exam Eye Exam: EOMI, Normal appearance - ENT Exam ENT Exam: Mucous Membranes Moist - Respiratory Exam Respiratory Exam: Clear to Auscultation Bilateral - Cardiovascular Exam Cardiovascular Exam: Tachycardia, REGULAR RHYTHM, +S1, +S2 - GI/Abdominal Exam GI & Abdominal Exam: Normal Bowel Sounds, Soft, Tenderness Additional comments: RUQ tenderness to deep palpation, Sommer's negative no palpable hepato/splenomegaly - Extremities Exam Extremities exam: Positive for: normal inspection - Neurological Exam Neurological exam: Alert, CN II-XII Intact, Normal Gait, Oriented x3, Reflexes Normal - Psychiatric Exam Psychiatric exam: Normal Affect, Normal Mood - Skin Skin Exam: Dry, Intact, Normal Color, Warm Results - Vital Signs Recent Vital Signs: Last Vital Signs Temp 100.1 F H 08/02/16 04:39 Pulse 89 08/01/16 18:00 Resp 18 08/01/16 18:00 BP 115/81 08/01/16 18:00 Pulse Ox 98 08/01/16 18:00 - Labs Result Diagrams: 08/01/16 07:45 08/01/16 07:45 Labs: Laboratory Results - last 24 hr 08/01/16 08/01/16 08/01/16 07:45 07:45 07:45 WBC 7.1 RBC 2.61 L Hgb 8.1 L Hct 24.1 L MCV 92.3 MCH 31.0 MCHC 33.6 RDW 14.0 Plt Count 152 MPV 10.6 Gran % 79.3 H Lymph % (Auto) 7.1 L [place] % (Auto) 13.5 H Eos % (Auto) 0.0 L Baso % (Auto) 0.1 Gran # 5.59 Lymph # 0.5 L [place] # 1.0 H Eos # 0.0 Baso # 0.01 Sodium 138 Potassium 3.4 L Chloride 112 H Carbon Dioxide 18 L Anion Gap 11 BUN 9 Creatinine 0.8 Est GFR ( Amer) > 60 Est GFR (Non-Af Amer) > 60 Random Glucose 78 Calcium 8.4 Iron 23 L TIBC 217 L % Saturation 11 L Ferritin Total Bilirubin 0.4 AST 48 H ALT 51 Alkaline Phosphatase 227 H Total Protein 5.9 Albumin 2.6 L Globulin 3.3 Albumin/Globulin Ratio 0.8 L Vitamin B12 Folate Procalcitonin Urine Color Urine Appearance Urine pH Ur Specific [place] Urine Protein Urine Glucose (UA) Urine Ketones Urine Blood Urine Nitrate Urine Bilirubin Urine Urobilinogen Ur Leukocyte Esterase Urine RBC Urine WBC Ur Epithelial Cells Urine Bacteria Ur Random Sodium Ur Random Potassium 08/01/16 08/01/16 08/01/16 07:45 17:30 19:30 WBC RBC Hgb Hct MCV MCH MCHC RDW Plt Count MPV Gran % Lymph % (Auto) [place] % (Auto) Eos % (Auto) Baso % (Auto) Gran # Lymph # [place] # Eos # Baso # Sodium Potassium Chloride Carbon Dioxide Anion Gap BUN Creatinine Est GFR ( Amer) Est GFR (Non-Af Amer) Random Glucose Calcium Iron TIBC % Saturation Ferritin 91.5 Total Bilirubin AST ALT Alkaline Phosphatase Total Protein Albumin Globulin Albumin/Globulin Ratio Vitamin B12 > 1000 H Folate 8.0 Procalcitonin 3.27 H Urine Color Yellow Urine Appearance Sl cloudy Urine pH 6.0 Ur Specific [place] 1.015 Urine Protein Trace H Urine Glucose (UA) Negative Urine Ketones Negative Urine Blood Large H Urine Nitrate Negative Urine Bilirubin Negative Urine Urobilinogen 0.2 Ur Leukocyte Esterase Trace H Urine RBC 10 - 15 Urine WBC 2 - 5 Ur Epithelial Cells 3 - 4 Urine Bacteria Few Ur Random Sodium Ur Random Potassium 08/01/16 19:30 WBC RBC Hgb Hct MCV MCH MCHC RDW Plt Count MPV Gran % Lymph % (Auto) [place] % (Auto) Eos % (Auto) Baso % (Auto) Gran # Lymph # [place] # Eos # Baso # Sodium Potassium Chloride Carbon Dioxide Anion Gap BUN Creatinine Est GFR ( Amer) Est GFR (Non-Af Amer) Random Glucose Calcium Iron TIBC % Saturation Ferritin Total Bilirubin AST ALT Alkaline Phosphatase Total Protein Albumin Globulin Albumin/Globulin Ratio Vitamin B12 Folate Procalcitonin Urine Color Urine Appearance Urine pH Ur Specific [place] Urine Protein Urine Glucose (UA) Urine Ketones Urine Blood Urine Nitrate Urine Bilirubin Urine Urobilinogen Ur Leukocyte Esterase Urine RBC Urine WBC Ur Epithelial Cells Urine Bacteria Ur Random Sodium 128 Ur Random Potassium 10.2 Assessment & Plan - Assessment and Plan (Free Text) Assessment: SLE Dysuria, fever, leukocytosis - acute pyelonephritis ?acalculous cholecystitis based on CT imaging Previous gallbladder US reviewed by me showing normal caliber CBD without presence of cholelithiasis Plan: - Diet as tolerated - Continue with antibiotic therapy as per ID - Monitor blood/urine culture results - LFTs stable, bilirubin normal, continue to monitor. Viral hepatitis and HIV panels negative. - Repeat US ordered by infectious disease, follow up results - No role or planned intervention by GI if acalculous cholecystitis is confirmed , follow up surgical recommendations. Will sign off case, please reconsult as necessary, thank you.
[2016-08-02 07:47] LABS: ADD MANUAL DIFF? NO
[2016-08-02 07:54] LABS: BASO # 0.02 K/mm3 (0.0-2.0); BASO % 0.2 % (0.0-3.0); GRAN # 8.46 (1.4-6.5); GRAN % 81.7 % (50.0-68.0); HEMATOCRIT 24.7 % (36.0-48.0); LYMPH # 0.8 (1.2-3.4); LYMPH % 7.3 % (22.0-35.0); MEAN CELL VOLUME 93.6 fL (80.0-105.0); MEAN CORPUSCULAR HEMOGLOBIN 31.1 pg (25.0-35.0); MEAN CORPUSCULAR HGB CONC 33.2 g/dl (31.0-37.0); MEAN PLATELET VOLUME 10.6 fl (7.0-11.0); MONO # 1.1 (0.1-0.6); MONO % 10.8 % (1.0-6.0); PLATELET COUNT 191 10^3/uL (120.0-450.0); RED CELL DISTRIBUTION WIDTH 14.2 % (11.5-14.5); WHITE BLOOD COUNT 10.4 10^3/ul (4.5-11.0)
[2016-08-02 08:48] LABS: ALB/GLOB RATIO 0.8 (1.1-1.8); ALKALINE PHOSPHATASE 180 U/L (38-133); ALT/SGPT 41 U/L (7-56); AST/SGOT 26 U/L (15-39); BILIRUBIN,TOTAL 0.4 mg/dL (0.2-1.3); BLOOD UREA NITROGEN 7 mg/dL (7-21); CALCIUM 8.7 mg/dL (8.4-10.5); CARBON DIOXIDE 19 mmol/L (21-33); CHLORIDE 112 mmol/L (98-107); GFR AFRICAN-AMERICAN > 60; GLUCOSE,RANDOM 84 mg/dL (70-110); POTASSIUM 3.9 mmol/L (3.6-5.0); SODIUM 138 mmol/L (132-148); TOTAL PROTEIN 5.2 g/dL (5.8-8.3)
--- NOTE | 2016-08-02 12:11 | US ---
HISTORY: temp 102 COMPARISON: 08/01/2016. TECHNIQUE: Sonographic evaluation of the abdomen. FINDINGS: LIVER: Measures 13.8 x 15.6 cm. Hepatopedal blood flow. Fatty infiltration manifest ultrasonographically as increased echogenicity of the liver parenchyma. No mass. No intrahepatic bile duct dilatation. GALLBLADDER: Contracted gallbladder accentuating gallbladder wall thickness. Negative sonographic Sommer's sign. No gallstones identified. COMMON BILE DUCT: Measures 3.7 mm. No stones. No dilatation. PANCREAS: Unremarkable as visualized. No mass. No ductal dilatation. RIGHT KIDNEY: Measures 5.2 x 12.9cm. Normal echogenicity. No calculus, mass, or hydronephrosis. LEFT KIDNEY: Measures 4.4 x 11.5cm. Normal echogenicity. No calculus, mass, or hydronephrosis. SPLEEN: Normal in size and contour. No mass. AORTA: No aneurysmal dilatation. IVC: Unremarkable. OTHER FINDINGS: None. IMPRESSION: No acute findings related to/accounting for the clinical presentation.
--- NOTE | 2016-08-02 12:46 | RAD ---
HISTORY: The only clinical history provided is "rule out infiltrate". COMPARISON: 07/28/2016 FINDINGS: LUNGS: New left lower lobe infiltrate consistent with acute pneumonia. PLEURA: No significant pleural effusion identified, no pneumothorax apparent. CARDIOVASCULAR: Normal. OSSEOUS STRUCTURES: No significant abnormalities. VISUALIZED UPPER ABDOMEN: Normal. OTHER FINDINGS: None. IMPRESSION: New left upper lobe pneumonia.
--- NOTE | 2016-08-02 13:17 | CP.PCM.PN ---
Subjective - Date & Time of Evaluation Date of Evaluation: 08/02/16 Time of Evaluation: 07:30 - Subjective Subjective: I have seen and examined patient at bedside. She appears slightly better today. Reports dull pain on the right side of abdomen along with nausea however she denies vomiting. Her Tmax was 100.1. Last BM was 4 days ago. Also report slight cough. Objective - Vital Signs/Intake and Output Vital Signs (last 24 hours): Temp Pulse Resp BP Pulse Ox 100.1 F H 89 18 115/81 98 08/02/16 04:39 08/01/16 18:00 08/01/16 18:00 08/01/16 18:00 08/01/16 18:00 Intake and Output: 08/02/16 08/02/16 06:59 18:59 Intake Total 480 Balance 480 - Medications Medications: Current Medications Acetaminophen (Tylenol 325mg Tab) 650 mg PO Q6H PRN PRN Reason: Fever >100.4 F Last Admin: 08/02/16 04:39 Dose: 650 mg Amlodipine Besylate (Norvasc) 5 mg PO DAILY [facility] Last Admin: 08/01/16 09:21 Dose: 5 mg Azathioprine (Imuran) 50 mg PO DAILY [facility] Last Admin: 08/01/16 10:40 Dose: 50 mg Hydroxychloroquine Sulfate (Plaquenil) 200 mg PO BID [facility] Last Admin: 08/01/16 17:25 Dose: 200 mg Meropenem 1g/NS 100mL IVPB (Meropenem 1g/Ns 100ml Ivpb) 1 gm in 100 mls @ 100 mls/hr IVPB Q8 [facility] PRN Reason: Protocol Stop: 08/10/16 17:03 Last Admin: 08/02/16 05:54 Dose: 100 mls/hr Morphine Sulfate (Morphine) 1 mg IVP Q4 PRN PRN Reason: moderate pain Last Admin: 08/02/16 04:40 Dose: 1 mg Ondansetron HCl (Zofran Inj) 4 mg IVP Q4 PRN PRN Reason: Nausea/Vomiting Last Admin: 08/01/16 17:23 Dose: 4 mg Pantoprazole Sodium (Protonix Inj) 40 mg IVP DAILY [facility] Last Admin: 08/01/16 09:19 Dose: 40 mg Prednisone (Prednisone Tab) 5 mg PO BID [facility] Last Admin: 08/01/16 17:35 Dose: 5 mg Sucralfate (Carafate Oral Susp) 1 gm PO TID PRN PRN Reason: Dyspepsia Last Admin: 07/29/16 05:39 Dose: 1 gm - Labs Labs: 08/02/16 07:20 08/01/16 07:45 PT 11.3 Seconds (9.9-11.8) 07/29/16 22:02 INR 1.05 (0.93-1.08) 07/29/16 22:02 - Constitutional Appears: Well, Non-toxic, No Acute Distress - Head Exam Head Exam: ATRAUMATIC, NORMAL INSPECTION, NORMOCEPHALIC - Eye Exam Eye Exam: EOMI, Normal appearance Pupil Exam: PERRL - ENT Exam ENT Exam: Mucous Membranes Moist - Neck Exam Neck Exam: Full ROM, Normal Inspection - Respiratory Exam Respiratory Exam: Rhonchi. absent: Accessory Muscle Use, Chest Wall Tenderness , Prolonged Expiratory Phase, Wheezes - Cardiovascular Exam Cardiovascular Exam: REGULAR RHYTHM, +S1, +S2 - GI/Abdominal Exam GI & Abdominal Exam: Soft, Tenderness (on the right flank on deep palpation), Normal Bowel Sounds - Rectal Exam Rectal Exam: Deferred - Extremities Exam Extremities Exam: Full ROM, Normal Capillary Refill, Normal Inspection - Back Exam Back Exam: Full ROM, NORMAL INSPECTION. absent: CVA tenderness (L), CVA tenderness (R) - Neurological Exam Neurological Exam: Alert, Awake, CN II-XII Intact, Normal Gait, Oriented x3 Neuro motor strength exam: Left Upper Extremity: 5, Right Upper Extremity: 5, Left Lower Extremity: 5, Right Lower Extremity: 5 - Psychiatric Exam Psychiatric exam: Normal Affect, Normal Mood - Skin Skin Exam: Dry, Intact, Normal Color, Warm Assessment and Plan - Assessment and Plan (Free Text) Plan: 31 year old female with history of SLE, HTN who presented with right flank pain and found to have acute pyelonephritis. 1-Acute pyelonephritis: CT abd/pelvis revealed evidence of gustavo-nephric inflammation. Blood and Urine culture is growing EColi. She is pen allergic. She was on azactam which was switched to meropenem. She has been spiking fever on and off along with moderate to severe pain in abdomen. Urine culture repeated. CT scan revealed suspicion of acalculous cholecystitis and ansarca. IVF were stopped yesterday. GI and surgery consult appreciated. GB ultrasound pending. She has a slight cough and rhonchi on PE. Will obtain CXR. Continue zofran prn and taper analgesics. 2-Ecoli Bacteremia: continue meropenem. Repeat blood cultures are negative. ID on board. 3-Acute kidney injury: Resolved. IVF were stopped yesterday. 4-SLE: Continue hydroxychloroquine and prednisone. 5-HTN: Continue norvasc. 6-GI prophylaxis: Continue protonix. 7-DVT prophylaxis: continue SCD's. 8-Moderate to severe pulmonay hypertension, moderate to severe TR, RV dilatation and overload : Will consult cardiology. 9-Dispo: Upon discharge patient will follow up with Dr mitchell.
--- NOTE | 2016-08-02 13:37 | US ---
HISTORY: Leg pain and swelling. Evaluate for DVT PHYSICIAN(S): Luis Teran MD. TECHNIQUE: Duplex sonography and color-flow Doppler with graded compression were used to evaluate the deep venous systems of both lower extremities. FINDINGS: The visualized deep venous systems of both lower extremities are sonographically normal and compressible. Normal wave forms and augmentation are seen. There is no sonographic evidence for deep venous thrombosis in the visualized segments of both lower extremities. IMPRESSION: No sonographic evidence for deep venous thrombosis in the visualized segments of both lower extremities.
--- NOTE | 2016-08-02 15:25 | PN ---
DATE: 08/02/2016 The patient is in bed, in no acute distress, nontoxic. No fevers and chills. PHYSICAL EXAMINATION: VITAL SIGNS: Temperature is 98, T-max is 100.1. The patient did have a temperature of 102 yesterday and which it appears to be on a downward trend with a heart rate of 120, respiratory rate of 18, blo od pressure is 133/80, saturation was down to 90% earlier this morning. HEENT: Unremarkable. NECK: Supple. LUNGS: Have decreased breath sounds. HEART: Normal S1, S2. ABDOMEN: Soft, nontender. No rebound or guarding. LABORATORY EXAMINATION: Reveals a white count of 10,000, hemoglobin of 8, platelets of 191. Customer Account Administrator magdy reveals a BUN of 7, creatinine of 0.9. Procalcitonin is 3.27. Repeat urinalysis is noted to carter ve much improved. The patient's HIV is negative. Hepatitis profile is negative. The repeat culture s are pending. Currently, patient is on meropenem and seems to have tolerated the meropenem well. Dr. Miranda's note i s reviewed. ASSESSMENT AND PLAN: A 31-year-old female with a history of lupus, hypertension, depression, history of bilateral hip replacement. Admitted with severe sepsis with Escherichia coli bacteremia, Escheri ino coli in the urine, Escherichia coli, right pyelonephritis who had a new temperature of 102. Rep eat CAT scan is noted. Elevated procalcitonin now. Repeat blood cultures, urine cultures are pendin g. Currently on meropenem. Appears to be tolerating it well and patient is slightly improved today and the patient had a new left lower lobe infiltrate on a chest x-ray, which has developed with a new healthcare-associated pneumonia in the setting of a right pyelonephritis with severe sepsis, and narendra terry add p.o. doxycycline to the meropenem, which the patient appears to be tolerating well in face of a new healthcare-associated bacterial, probable gram-positive cocci versus gram-negative andie pneumonia . Mega Barbosa MD cc: 350 TT: 08/02/2016 15:24:48 Confirmation # [id number] Dictation # [id number]
--- NOTE | 2016-08-02 16:04 | CP.PCM.PN ---
Subjective - Date & Time of Evaluation Date of Evaluation: 08/02/16 Time of Evaluation: 07:00 - Subjective Subjective: GENERAL SURGERY PROGRESS NOTE FOR DR. BALDWIN Patient seen and examined at bedside. She continues to have right flank pain. She denies nausea and vomiting. States her pain gets worse after eating but states it feels like gas pain. She denies dysuria, frequency, or urinary hesitancy. Objective - Vital Signs/Intake and Output Vital Signs (last 24 hours): Temp Pulse Resp BP Pulse Ox 100 F H 120 H 17 133/83 90 L 08/02/16 12:12 08/02/16 06:00 08/02/16 06:00 08/02/16 11:32 08/02/16 06:00 Intake and Output: 08/02/16 08/02/16 06:59 18:59 Intake Total 480 Balance 480 - Medications Medications: Current Medications Acetaminophen (Tylenol 325mg Tab) 650 mg PO Q6H PRN PRN Reason: Fever >100.4 F Last Admin: 08/02/16 12:12 Dose: 650 mg Amlodipine Besylate (Norvasc) 5 mg PO DAILY [facility] Last Admin: 08/02/16 11:32 Dose: 5 mg Azathioprine (Imuran) 50 mg PO DAILY [facility] Last Admin: 08/02/16 11:31 Dose: 50 mg Doxycycline Hyclate (Doryx) 100 mg PO Q12 [facility] PRN Reason: Protocol Stop: 08/11/16 22:01 Hydroxychloroquine Sulfate (Plaquenil) 200 mg PO BID [facility] Last Admin: 08/02/16 11:32 Dose: 200 mg Meropenem 1g/NS 100mL IVPB (Meropenem 1g/Ns 100ml Ivpb) 1 gm in 100 mls @ 100 mls/hr IVPB Q8 [facility] PRN Reason: Protocol Stop: 08/10/16 17:03 Last Admin: 08/02/16 14:46 Dose: 100 mls/hr Morphine Sulfate (Morphine) 1 mg IVP Q4 PRN PRN Reason: moderate pain Last Admin: 08/02/16 12:09 Dose: 1 mg Ondansetron HCl (Zofran Inj) 4 mg IVP Q4 PRN PRN Reason: Nausea/Vomiting Last Admin: 08/01/16 17:23 Dose: 4 mg Pantoprazole Sodium (Protonix Inj) 40 mg IVP DAILY [facility] Last Admin: 08/02/16 11:32 Dose: 40 mg Prednisone (Prednisone Tab) 5 mg PO BID [facility] Last Admin: 08/02/16 11:32 Dose: 5 mg Sucralfate (Carafate Oral Susp) 1 gm PO TID PRN PRN Reason: Dyspepsia Last Admin: 07/29/16 05:39 Dose: 1 gm - Labs Labs: 08/02/16 07:20 08/02/16 07:30 PT 11.3 Seconds (9.9-11.8) 07/29/16 22:02 INR 1.05 (0.93-1.08) 07/29/16 22:02 - Constitutional Appears: Non-toxic, No Acute Distress - Head Exam Head Exam: ATRAUMATIC, NORMAL INSPECTION - Eye Exam Eye Exam: EOMI, Normal appearance - Respiratory Exam Respiratory Exam: NORMAL BREATHING PATTERN. absent: Respiratory Distress - Cardiovascular Exam Cardiovascular Exam: Tachycardia, +S1, +S2 - GI/Abdominal Exam GI & Abdominal Exam: Soft, Tenderness (tender in RUQ, epig, periumbilical area) . absent: Distended, Firm, Guarding, Rigid, Rebound - Back Exam Back Exam: CVA tenderness (R). absent: CVA tenderness (L) - Neurological Exam Neurological Exam: Alert, Awake, Oriented x3 - Psychiatric Exam Psychiatric exam: Normal Affect, Normal Mood - Skin Skin Exam: Dry, Normal Color, Warm Assessment and Plan - Assessment and Plan (Free Text) Assessment: 31yo F with PMHx of SLE, HTN with RUQ and right flank pain likely secondary to pyelonephritis. Surgery consulted to rule out acalculous cholecystitis - E. Coli blood cx - Tmax 102.7 yesterday AM - Bili, LFTs WNL today - Repeat abdominal US: contracted gallbladder, no stones, negative sonographic [place] sign, CBD 3.7mm - Sx unlikely related to gallbladder - More likely due to pyelonephritis - Continue IV Abx per ID - Discussed plan with Dr. Mirtha Reed PGY-2
[2016-08-03] MEDS: Meropenem 1g/NS 100mL IVPB 1 GM/100 ML PIGGYBACK IVPB SCH ×3 (05:17→22:19)
[2016-08-03] MEDS: Morphine 2 mg/ml ISec IVP PRN ×3 (05:21→22:27)
--- NOTE | 2016-08-03 08:51 | CP.PCM.PN ---
Subjective - Date & Time of Evaluation Date of Evaluation: 08/03/16 Time of Evaluation: 07:10 - Subjective Subjective: Nathan Garcia D.O. PGY-1, General Surgery Progress Note: Dr. Mirtha Gupta. 31 year old female with a PMH of SLE and HTN who presented with right sided flank pain, surgical consultation was placed for possible acalculous cholecystitis. Patient was seen and examined at bedside with surgery team. At this time patient was found resting comfortably, states that she is doing much better but does still have some residual right flank pain. Patient states that her current medical regimen helps however. Denies any fevers/chills/N/V/D/C, or other complaints. Objective - Vital Signs/Intake and Output Vital Signs (last 24 hours): Temp Pulse Resp BP Pulse Ox 99.2 F 90 20 121/88 86 L 08/03/16 08:35 08/03/16 08:35 08/03/16 08:35 08/03/16 08:35 08/03/16 08:35 Intake and Output: 08/03/16 08/03/16 06:59 18:59 Intake Total 660 Balance 660 - Medications Medications: Current Medications Acetaminophen (Tylenol 325mg Tab) 650 mg PO Q6H PRN PRN Reason: Fever >100.4 F Last Admin: 08/02/16 12:12 Dose: 650 mg Amlodipine Besylate (Norvasc) 5 mg PO DAILY [facility] Last Admin: 08/02/16 11:32 Dose: 5 mg Azathioprine (Imuran) 50 mg PO DAILY [facility] Last Admin: 08/02/16 11:31 Dose: 50 mg Doxycycline Hyclate (Doryx) 100 mg PO Q12 [facility] PRN Reason: Protocol Stop: 08/11/16 22:01 Last Admin: 08/02/16 21:13 Dose: 100 mg Hydroxychloroquine Sulfate (Plaquenil) 200 mg PO BID [facility] Last Admin: 08/02/16 17:57 Dose: 200 mg Meropenem 1g/NS 100mL IVPB (Meropenem 1g/Ns 100ml Ivpb) 1 gm in 100 mls @ 100 mls/hr IVPB Q8 [facility] PRN Reason: Protocol Stop: 08/10/16 17:03 Last Admin: 08/03/16 05:17 Dose: 100 mls/hr Morphine Sulfate (Morphine) 1 mg IVP Q4 PRN PRN Reason: moderate pain Last Admin: 08/03/16 05:21 Dose: 1 mg Ondansetron HCl (Zofran Inj) 4 mg IVP Q4 PRN PRN Reason: Nausea/Vomiting Last Admin: 08/01/16 17:23 Dose: 4 mg Pantoprazole Sodium (Protonix Inj) 40 mg IVP DAILY [facility] Last Admin: 08/02/16 11:32 Dose: 40 mg Prednisone (Prednisone Tab) 5 mg PO BID [facility] Last Admin: 08/02/16 17:57 Dose: 5 mg Sucralfate (Carafate Oral Susp) 1 gm PO TID PRN PRN Reason: Dyspepsia Last Admin: 07/29/16 05:39 Dose: 1 gm - Labs Labs: 08/02/16 07:20 08/02/16 07:30 PT 11.3 Seconds (9.9-11.8) 07/29/16 22:02 INR 1.05 (0.93-1.08) 07/29/16 22:02 - Constitutional Appears: Non-toxic, No Acute Distress - Head Exam Head Exam: ATRAUMATIC, NORMAL INSPECTION - Eye Exam Eye Exam: EOMI, Normal appearance - Respiratory Exam Respiratory Exam: NORMAL BREATHING PATTERN. absent: Respiratory Distress - GI/Abdominal Exam GI & Abdominal Exam: Soft, Tenderness (RUQ). absent: Distended, Firm, Guarding , Rigid, Rebound - Back Exam Back Exam: CVA tenderness (R). absent: CVA tenderness (L) - Neurological Exam Neurological Exam: Alert, Awake, Oriented x4 - Psychiatric Exam Psychiatric exam: Normal Affect, Normal Mood - Skin Skin Exam: Dry, Normal Color, Warm Assessment and Plan - Assessment and Plan (Free Text) Assessment: 31 year old female with a PMH of SLE and HTN who presented with RUQ and right flank pain likely secondary to pyelonephritis, surgery consulted to rule out acalculous cholecystitis. Plan: Repeat abdominal US showed a contracted gallbladder, no stones, negative sonographic [place] sign, and a CBD of 3.7mm Fevers, leukocytosis, and symptomatology more likely from pyelonephritis, now with BCx + for E. Coli, than acalculous cholecystitis Cont IV abx as per ID We will continue to follow Discussed with attending physician. Thank you for the pleasure of participating in the care of this patient.
[2016-08-03 10:24] LABS: ADD MANUAL DIFF? NO
[2016-08-03 10:29] LABS: BASO # 0.02 K/mm3 (0.0-2.0); BASO % 0.2 % (0.0-3.0); GRAN # 8.24 (1.4-6.5); GRAN % 84.4 % (50.0-68.0); HEMATOCRIT 24.9 % (36.0-48.0); LYMPH # 0.6 (1.2-3.4); MEAN CELL VOLUME 96.1 fL (80.0-105.0); MEAN CORPUSCULAR HGB CONC 33.3 g/dl (31.0-37.0); MEAN PLATELET VOLUME 11.7 fl (7.0-11.0); MONO # 0.9 (0.1-0.6); MONO % 9.4 % (1.0-6.0); PLATELET COUNT 226 10^3/uL (120.0-450.0); RED CELL DISTRIBUTION WIDTH 14.4 % (11.5-14.5); WHITE BLOOD COUNT 9.8 10^3/ul (4.5-11.0)
[2016-08-03 10:42] LABS: ALB/GLOB RATIO 0.8 (1.1-1.8); ALKALINE PHOSPHATASE 137 U/L (38-133); ALT/SGPT 32 U/L (7-56); AST/SGOT 33 U/L (15-39); BILIRUBIN,TOTAL 0.4 mg/dL (0.2-1.3); BLOOD UREA NITROGEN 8 mg/dL (7-21); CALCIUM 8.7 mg/dL (8.4-10.5); CARBON DIOXIDE 21 mmol/L (21-33); CHLORIDE 110 mmol/L (98-107); GFR AFRICAN-AMERICAN > 60; GLUCOSE,RANDOM 89 mg/dL (70-110); POTASSIUM 3.9 mmol/L (3.6-5.0); SODIUM 139 mmol/L (132-148)
[2016-08-03 11:38] LABS: ERYTHROCYTE SEDIMENTATION RATE 62 mm/hr (0.0-20.0)
--- NOTE | 2016-08-03 12:26 | CT ---
PROCEDURE: CT Chest without contrast HISTORY: infiltrate vs atelectasis new, pulmonary hypertens COMPARISON: None. TECHNIQUE: Contiguous axial images were obtained through the chest without intravenous contrast enhancement. Sagittal and coronal reconstructions were performed. Radiation dose (DLP): 243 mGy-cm. This CT exam was performed using one or more of the following dose reduction techniques: Automated exposure control, adjustment of the mA and/or kV according to patient size, and/or use of iterative reconstruction technique. FINDINGS: LUNGS: Clear lungs. Visualized airway clear. MEDIASTINUM: Unremarkable thoracic aorta. No aneurysm. Normal sized heart. Main pulmonary artery unremarkable. No vascular congestion. No lymphadenopathy. PLEURA: Small to moderate-sized bilateral pleural effusions, left greater than right with subsegmental consolidation at the left base. BONES: No fracture. No destructive lesion. UPPER ABDOMEN: Grossly unremarkable. OTHER FINDINGS: None. IMPRESSION: Small to moderate-sized bilateral pleural effusions, left greater than right with subsegmental consolidation at the left base.
--- NOTE | 2016-08-03 13:01 | CP.PCM.PN ---
<HumaMundo - Last Filed: 08/03/16 12:57> Subjective - Date & Time of Evaluation Date of Evaluation: 08/03/16 Time of Evaluation: 12:57 - Subjective Subjective: Patient seen and examined. Abdominal pain is improved. Denies n/v/d today or overnight. Notes some shortness of breath with ambulating to the bathroom. Patient also complains of a headache this morning. She is tolerating her diet. Temp 100.3F this morning. Patient also notes subjective fever and chills this am. Objective - Vital Signs/Intake and Output Vital Signs (last 24 hours): Temp Pulse Resp BP Pulse Ox 99.6 F 90 20 121/88 86 L 08/03/16 10:26 08/03/16 09:24 08/03/16 08:35 08/03/16 09:24 08/03/16 08:35 Intake and Output: 08/03/16 08/03/16 06:59 18:59 Intake Total 660 Balance 660 - Medications Medications: Current Medications Acetaminophen (Tylenol 325mg Tab) 650 mg PO Q6H PRN PRN Reason: Fever >100.4 F Last Admin: 08/03/16 09:26 Dose: 650 mg Amlodipine Besylate (Norvasc) 5 mg PO DAILY [facility] Last Admin: 08/03/16 09:24 Dose: 5 mg Azathioprine (Imuran) 50 mg PO DAILY [facility] Last Admin: 08/03/16 09:24 Dose: 50 mg Doxycycline Hyclate (Doryx) 100 mg PO Q12 [facility] PRN Reason: Protocol Stop: 08/11/16 22:01 Last Admin: 08/03/16 09:24 Dose: 100 mg Hydroxychloroquine Sulfate (Plaquenil) 200 mg PO BID [facility] Last Admin: 08/03/16 09:26 Dose: 200 mg Meropenem 1g/NS 100mL IVPB (Meropenem 1g/Ns 100ml Ivpb) 1 gm in 100 mls @ 100 mls/hr IVPB Q8 [facility] PRN Reason: Protocol Stop: 08/10/16 17:03 Last Admin: 08/03/16 05:17 Dose: 100 mls/hr Ibuprofen (Motrin Tab) 400 mg PO Q6H PRN PRN Reason: Headache Morphine Sulfate (Morphine) 1 mg IVP Q4 PRN PRN Reason: moderate pain Last Admin: 08/03/16 09:25 Dose: 1 mg Ondansetron HCl (Zofran Inj) 4 mg IVP Q4 PRN PRN Reason: Nausea/Vomiting Last Admin: 08/03/16 09:33 Dose: 4 mg Pantoprazole Sodium (Protonix Inj) 40 mg IVP DAILY [facility] Last Admin: 08/03/16 09:24 Dose: 40 mg Prednisone (Prednisone Tab) 5 mg PO BID [facility] Last Admin: 08/03/16 09:24 Dose: 5 mg Sucralfate (Carafate Oral Susp) 1 gm PO TID PRN PRN Reason: Dyspepsia Last Admin: 07/29/16 05:39 Dose: 1 gm - Labs Labs: 08/03/16 10:00 08/03/16 10:00 PT 11.3 Seconds (9.9-11.8) 07/29/16 22:02 INR 1.05 (0.93-1.08) 07/29/16 22:02 - Constitutional Appears: Non-toxic, No Acute Distress - Head Exam Head Exam: ATRAUMATIC, NORMOCEPHALIC - Eye Exam Eye Exam: EOMI, PERRL - ENT Exam ENT Exam: Mucous Membranes Moist - Neck Exam Neck Exam: Full ROM, Normal Inspection. absent: Lymphadenopathy - Respiratory Exam Respiratory Exam: Decreased Breath Sounds (right lower lung field). absent: Accessory Muscle Use, Respiratory Distress - Cardiovascular Exam Cardiovascular Exam: REGULAR RHYTHM, +S1, +S2 - GI/Abdominal Exam GI & Abdominal Exam: Soft, Normal Bowel Sounds. absent: Tenderness - Extremities Exam Extremities Exam: Full ROM, Normal Inspection. absent: Calf Tenderness, Pedal Edema - Back Exam Back Exam: absent: CVA tenderness (R) - Neurological Exam Neurological Exam: Alert, Awake, Oriented x3 - Skin Skin Exam: Warm Assessment and Plan - Assessment and Plan (Free Text) Assessment: 31 y/o female with a PMHx SLE, Htn who presents to the ED with acute pyelonephritis. CT abd/pelvis reveals evidence of gustavo-nephric inflammation. Patient has experienced intermittent fevers since admission with a lack of adequate clinical improvement. Repeat abdominal CT reveals gustavo-cholecystic inflammation concerning for acalculous cholecystitis. Surgery and GI are following. No intervention is planned at this point. Gallbladder inflammation may be an extension of perinephric inflammation. Echo results reveal severe pulmonary hypertension with dilation of right heart chambers. Pulmonary is following. There is also questionable right sided infiltrate vs atelectasis. CT chest results are pending Right sided pyelonephritis - continue Meropenem day 3, doxycycline - ID is following - continue Morphine 1 q 4h - zofran for nausea - tolerating diet Pulmonary HTN - severe PH on echo - pulmonary following - likely type I - patient will require right heart catheterization with vasodilators. Will need to be referred to tertiary center after discharge. right lung infiltrate vs atelectasis and pneumonitis - CT chest pending - if pna is considered patient require abx coverage for HCAP Bacteremia - gram negative rods growing - ID following - continue current abx GENOVEVA - pre-renal 2/2 decreased PO intake coupled with vomiting. acute injury is resolved - renal function is improved - continue IVF - avoid nephrotoxic meds - continue to monitor SLE - c/w hydroxychloroqine and prednisone daily Htn - c/w amlodipine po daily PPX - protonix 40mg daily - scd's <Kirk Miranda B - Last Filed: 08/03/16 15:17> Objective - Vital Signs/Intake and Output Vital Signs (last 24 hours): Temp Pulse Resp BP Pulse Ox 99.6 F 90 20 122/80 86 L 08/03/16 10:26 08/03/16 09:24 08/03/16 08:35 08/03/16 14:50 08/03/16 08:35 Intake and Output: 08/03/16 08/03/16 06:59 18:59 Intake Total 660 660 Balance 660 660 - Medications Medications: Current Medications Acetaminophen (Tylenol 325mg Tab) 650 mg PO Q6H PRN PRN Reason: Fever >100.4 F Last Admin: 08/03/16 09:26 Dose: 650 mg Amlodipine Besylate (Norvasc) 5 mg PO DAILY [facility] Last Admin: 08/03/16 09:24 Dose: 5 mg Azathioprine (Imuran) 50 mg PO DAILY [facility] Last Admin: 08/03/16 09:24 Dose: 50 mg Hydroxychloroquine Sulfate (Plaquenil) 200 mg PO BID [facility] Last Admin: 08/03/16 09:26 Dose: 200 mg Meropenem 1g/NS 100mL IVPB (Meropenem 1g/Ns 100ml Ivpb) 1 gm in 100 mls @ 100 mls/hr IVPB Q8 [facility] PRN Reason: Protocol Stop: 08/10/16 17:03 Last Admin: 08/03/16 14:23 Dose: 100 mls/hr Vancomycin HCl (Vancomycin 1gm) 1 gm in 250 mls @ 167 mls/hr IVPB Q12H [facility] PRN Reason: Protocol Ibuprofen (Motrin Tab) 400 mg PO Q6H PRN PRN Reason: Headache Levofloxacin/Dextrose (Levaquin 750mg) 750 mg IVPB DAILY [facility] Last Admin: 08/03/16 14:51 Dose: 750 mg Morphine Sulfate (Morphine) 1 mg IVP Q4 PRN PRN Reason: moderate pain Last Admin: 08/03/16 09:25 Dose: 1 mg Ondansetron HCl (Zofran Inj) 4 mg IVP Q4 PRN PRN Reason: Nausea/Vomiting Last Admin: 08/03/16 09:33 Dose: 4 mg Pantoprazole Sodium (Protonix Inj) 40 mg IVP DAILY [facility] Last Admin: 08/03/16 09:24 Dose: 40 mg Prednisone (Prednisone Tab) 5 mg PO BID [facility] Last Admin: 08/03/16 09:24 Dose: 5 mg Sucralfate (Carafate Oral Susp) 1 gm PO TID PRN PRN Reason: Dyspepsia Last Admin: 07/29/16 05:39 Dose: 1 gm - Labs Labs: 08/03/16 10:00 08/03/16 10:00 PT 11.3 Seconds (9.9-11.8) 07/29/16 22:02 INR 1.05 (0.93-1.08) 07/29/16 22:02 Attending/Attestation - Attestation I have personally seen and examined this patient.: Yes I have fully participated in the care of the patient.: Yes I have reviewed all pertinent clinical information, including history, physical exam and plan: Yes Notes (Text): I have seen and examined the patient at the bedside. Agree with the above note with the following additions/ exceptions: 31 year old female with history of SLE, HTN who presented with right flank pain and found to have acute pyelonephritis. CT abd/pelvis revealed evidence of gustavo- nephric inflammation. Blood and Urine culture is growing EColi. She is pen allergic. She was on azactam which was switched to meropenem. She has been spiking fever on and off along with moderate to severe pain in abdomen. Urine culture repeated. CT scan revealed suspicion of acalculous cholecystitis and ansarca. GB ultrasound showed no acute findings. Most likely CT findings were related to gustavo nephric stranding. There is no plan for surgery. Also has cough. CXR revealed pneumonia. Patient has HCAP on meropenem and doxycycline. Continue meropenem for ecoli bacteremia. Repeat blood cultures are negative. ID on board. Acute kidney injury has resolved. Continue hydroxychloroquine and prednisone for SLE. Continue norvasc for HTN. Echo revealed Moderate to severe pulmonary hypertension, moderate to severe TR, RV dilatation and overload . Patient will need right heart cath and will need either transfer or outpatient followup in tertiary care center. Upon discharge patient will follow up with Dr mitchell. Dr Kirk Miranda
--- NOTE | 2016-08-03 13:43 | NM ---
COMPARISON: 08/02/2016 TECHNIQUE: 34.6 mCi technetium 99-m DTPA aerosol. 5.4 mCI technetium 99-m MAA administered intravenously. FINDINGS: VENTILATION COMPONENT: Normal. PERFUSION COMPONENT: Normal. IMPRESSION: Lowprobability ventilation perfusion scan for pulmonary embolism.
[2016-08-03] MEDS: levoFLOXacin 750 mg in D5W 150 ML BAG IVPB SCH (14:51)
[2016-08-03] MEDS: Vancomycin 1gm in NS 250ml 1 GM/250 ML BAG IVPB SCH (16:23)
--- NOTE | 2016-08-03 16:57 | CON ---
DATE: 08/03/2016 SUBJECTIVE: This is a 31-year-old lady with history of SLE, hypertension, who presented with right-sided abdominal/flank pain on 07/28/2016. She also had fever and eventually was diagnosed with pyelonephritis with gram-negative andie bacteremia. E. coli grew in the blood and in the urine, and patient was subsequently treated with meropenem. After initial improvement in her abdominal and flank pain and resolution of her leukocytosis, she continued to be febrile and recently started to cough up some whitish sputum. Her cough progressed and she continued to have episodic periods of fever up to 102. The CAT scan of the abdomen and pelvis that was done as a part of work up for pyelonephritis diagnosis also revealed new left lower lobe atelectasis and pleural effusion. Preliminary diagnosis of hospital-acquired pneumonia was made and pulmonary consult was called. Of note, as a part of previous workup during this admission, echocardiogram was done which revealed moderate right ventricular dilatation and right atrial dilatation with severe pulmonary hypertension based on RVSP. LV EF was normal. Of note, patient does report some shortness of breath on some exercise and exertion that was getting progressively worse recently. The patient denies vomiting, diarrhea, constipation. PAST MEDICAL HISTORY: Hypertension, SLE. MEDICATIONS: Of note, patient is on prednisone 5 mg p.o. b.i.d. and azathioprine 50 mg p.o. daily. She is also on hydroxychloroquine 200 mg b.i.d. and Norvasc 5 mg p.o. daily. In the hospital her medications include Tylenol p.r.n., Norvasc, Imuran, Plaquenil, meropenem, Zofran p.r.n., Protonix, prednisone 5 mg p.o. b.i.d., and Carafate p.r.n. SOCIAL HISTORY: The patient was on and off smoker for about 4 years up to 1 month ago when she completely quit smoking. The patient is drinking alcohol moderately, about 1-2 glasses of wine with dinner. The patient denies exposure to any toxic fumes or other hazardous materials. 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 FAMILY HISTORY: Noncontributory. ALLERGIES: PENICILLIN. PHYSICAL EXAMINATION: VITAL SIGNS: Temperature 100.4, blood pressure 121/88, oxygen saturation 93% on room air. HEAD AND NECK: Atraumatic. LUNGS: Few crackles bibasilarly. Some decreased breath sounds in the left lower lobe. HEART: Regular rate and rhythm, slightly tachycardic. There is S2 splitting with more prominent P2 component. ABDOMEN: Soft, nontender, nondistended. MUSCULOSKELETAL: No C/C/E. NEUROLOGIC: The patient moves all extremities spontaneously. SKIN: Moist. PSYCHIATRIC: The patient is alert and oriented x 3. LABORATORY DATA: WBC 10.4, hemoglobin 8.2, platelet count 191. Sodium 138, potassium 3.9, chloride 112, carbon dioxide 19, BUN 7, creatinine 0.9, glucose 84, alkaline phosphatase 180, AST 26, ALT 41. Vitamin B12 more than 1000. Procalcitonin 3.27 as of 2 days ago. INR 1.05. Hepatitis B and C profile is negative. HIV is negative. Hepatitis C is negative. Extremity ultrasound is negative. Abdominal ultrasound, no acute findings related to accounting for the clinical suspicion of acute cholecystitis. CBD 3.7 mm. No stones, no dilatation, no hydronephrosis bilaterally. Abdominal and pelvic CAT scan showed trace bilateral pleural effusion, which is new, adjacent atelectasis at the left lower lobe noted. Impression: Some subcutaneous edema, anasarca, new low volume ascites in the abdomen and pelvis, perinephric stranding, which is likely part of the more systemic process contributed to the appearance of edema, edematous changes from the gallbladder wall, pericholecystic fluid (that was followed up with abdominal ultrasound, findings of which please see above). Echocardiogram revealed normal left ventricular size and left ventricular function. There is, however, a flattening of the septum with abnormal motion consistent with pressure/volume overload, the right ventricle is moderately dilated, the right atrium is moderately dilated, there is a moderate to severe tricuspid regurgitation, and there is a severe pulmonary hypertension. ASSESSMENT AND PLAN: This is a 31-year-old lady with SLE who PCCM was asked to consult for questionable hospital-acquired pneumonia. At present time, I will proceed with dedicated CAT scan of the chest. The fact that the patient has fever+new cough with increased sputum production+new infiltrate is concerning for hospital-acquired pneumonia, I would upgrade antibiotics to double anti- pseudomonal and single [id number] coverage. I would repeat blood and urine culture. I would send sputum culture. I discussed that with infectious disease service, who agreed. I would follow up procalcitonin level as well. If no clinical improvement after upgraded and long-term antibiotic therapy observed, consideration can be given to noninfectious causes of patient's symptoms, including autoimmune disorders. Even though rheumatologic screen may be falsely positive in the setting of infection, I would take a look at SARAH titer, rheumatoid factor, and ESR. What is more concerning, however, is severity of her pulmonary hypertension. Even though echocardiogram report comments on some potential mild diastolic left ventricular dysfunction, the severity of pulmonary hypertension appears to be out of proportion to other pathologic processes that are going on with the patient right now. She does however appears to be fluid overload and I will start diuresing her, which will help stabilize her RV function to some degree (and help with pneumonia). Once her infection processes resolve, I would recommend referral to tertiary center with PAH management expertise, where watermelon inspector management and follow up of/for PAH would take place. She will need LV and RH cath with vasodilatory challenge. 6- min walk test. Meanwhile, I will order a VQ scan to rule out chronic thromboembolic pulmonary hypertension. Hepatitis and human immunodeficiency virus profile are negative, LFTs are WNL A dedicated CAT scan of the chest is also pending. She most likely (based on severity of pulmonary hypetension and , of course, pending RH cath with vasoreactivity test) will need parenteral pulmonary vasodilators (prostacyclines) to improve her chances for survival and decrease her morbidity and mortality. As a bridge therapy I may consider dobutamine infusion. I will continue to target euvolemia, euglycemia, normothermia, and oxygen saturation more than 90%. I will continue with deep venous thrombosis and gastrointestinal prophylaxis. ccm time 40 min Bossman Pierson MD cc: [id number] TT: 08/03/2016 16:57:29 Confirmation # [id number] Dictation # [id number] neil WELCH
--- NOTE | 2016-08-03 17:21 | CP.PCM.PN ---
Subjective - Date & Time of Evaluation Date of Evaluation: 08/03/16 Time of Evaluation: 11:00 - Subjective Subjective: Comfortable, still having low grade fevers, not in distress. Objective - Vital Signs/Intake and Output Vital Signs (last 24 hours): Temp Pulse Resp BP Pulse Ox 99.2 F 90 20 121/88 86 L 08/03/16 08:35 08/03/16 08:35 08/03/16 08:35 08/03/16 08:35 08/03/16 08:35 Intake and Output: 08/03/16 08/03/16 06:59 18:59 Intake Total 660 Balance 660 - Medications Medications: Current Medications Acetaminophen (Tylenol 325mg Tab) 650 mg PO Q6H PRN PRN Reason: Fever >100.4 F Last Admin: 08/02/16 12:12 Dose: 650 mg Amlodipine Besylate (Norvasc) 5 mg PO DAILY [facility] Last Admin: 08/02/16 11:32 Dose: 5 mg Azathioprine (Imuran) 50 mg PO DAILY [facility] Last Admin: 08/02/16 11:31 Dose: 50 mg Doxycycline Hyclate (Doryx) 100 mg PO Q12 [facility] PRN Reason: Protocol Stop: 08/11/16 22:01 Last Admin: 08/02/16 21:13 Dose: 100 mg Hydroxychloroquine Sulfate (Plaquenil) 200 mg PO BID [facility] Last Admin: 08/02/16 17:57 Dose: 200 mg Meropenem 1g/NS 100mL IVPB (Meropenem 1g/Ns 100ml Ivpb) 1 gm in 100 mls @ 100 mls/hr IVPB Q8 [facility] PRN Reason: Protocol Stop: 08/10/16 17:03 Last Admin: 08/03/16 05:17 Dose: 100 mls/hr Morphine Sulfate (Morphine) 1 mg IVP Q4 PRN PRN Reason: moderate pain Last Admin: 08/03/16 05:21 Dose: 1 mg Ondansetron HCl (Zofran Inj) 4 mg IVP Q4 PRN PRN Reason: Nausea/Vomiting Last Admin: 08/01/16 17:23 Dose: 4 mg Pantoprazole Sodium (Protonix Inj) 40 mg IVP DAILY [facility] Last Admin: 08/02/16 11:32 Dose: 40 mg Prednisone (Prednisone Tab) 5 mg PO BID [facility] Last Admin: 08/02/16 17:57 Dose: 5 mg Sucralfate (Carafate Oral Susp) 1 gm PO TID PRN PRN Reason: Dyspepsia Last Admin: 07/29/16 05:39 Dose: 1 gm - Labs Labs: 08/02/16 07:20 08/02/16 07:30 PT 11.3 Seconds (9.9-11.8) 07/29/16 22:02 INR 1.05 (0.93-1.08) 07/29/16 22:02 - Constitutional Appears: Non-toxic, No Acute Distress - Head Exam Head Exam: NORMAL INSPECTION - ENT Exam ENT Exam: Mucous Membranes Moist - Neck Exam Neck Exam: absent: Lymphadenopathy, Meningismus - Respiratory Exam Respiratory Exam: Decreased Breath Sounds - Cardiovascular Exam Cardiovascular Exam: +S1, +S2 - GI/Abdominal Exam GI & Abdominal Exam: Soft. absent: Tenderness Assessment and Plan - Assessment and Plan (Free Text) Plan: Assessment Severe sepsis with acute renal failure due to E. coli bacteremia from acute right sided pyelonephritis, as well as possible right lower lobe healthcare- associated pneumonia HTN depression S/P bilateral hip replacement Plan Continue Merrem and will add Vancomycin and Levaquin - discussed with Dr. Pierson - will observe to see if empiric treatment for pneumonia will improve the patient's clinical status
[2016-08-04] MEDS: Vancomycin 1gm in NS 250ml 1 GM/250 ML BAG IVPB SCH ×2 (01:53→13:40)
[2016-08-04] MEDS: Meropenem 1g/NS 100mL IVPB 1 GM/100 ML PIGGYBACK IVPB SCH ×3 (05:52→22:02)
[2016-08-04] MEDS: Morphine 2 mg/ml ISec IVP PRN ×4 (06:38→20:27)
[2016-08-04 07:58] LABS: ADD MANUAL DIFF? NO
[2016-08-04 08:02] LABS: BASO # 0.01 K/mm3 (0.0-2.0); BASO % 0.1 % (0.0-3.0); GRAN # 8.96 (1.4-6.5); GRAN % 86.1 % (50.0-68.0); HEMATOCRIT 26.9 % (36.0-48.0); LYMPH # 0.7 (1.2-3.4); MEAN CELL VOLUME 94.7 fL (80.0-105.0); MEAN CORPUSCULAR HEMOGLOBIN 31.3 pg (25.0-35.0); MEAN CORPUSCULAR HGB CONC 33.1 g/dl (31.0-37.0); MEAN PLATELET VOLUME 11.5 fl (7.0-11.0); MONO # 0.7 (0.1-0.6); MONO % 6.8 % (1.0-6.0); PLATELET COUNT 259 10^3/uL (120.0-450.0); RED CELL DISTRIBUTION WIDTH 14.3 % (11.5-14.5); WHITE BLOOD COUNT 10.4 10^3/ul (4.5-11.0)
[2016-08-04 08:15] LABS: ALB/GLOB RATIO 0.8 (1.1-1.8); ALKALINE PHOSPHATASE 163 U/L (38-133); ALT/SGPT 48 U/L (7-56); AST/SGOT 55 U/L (15-39); BILIRUBIN,TOTAL 0.3 mg/dL (0.2-1.3); BLOOD UREA NITROGEN 13 mg/dL (7-21); CALCIUM 8.7 mg/dL (8.4-10.5); CARBON DIOXIDE 29 mmol/L (21-33); CHLORIDE 104 mmol/L (95-110); GFR AFRICAN-AMERICAN > 60; GLUCOSE,RANDOM 81 mg/dL (70-110); POTASSIUM 3.6 mmol/L (3.6-5.0); SODIUM 141 mmol/L (132-148); TOTAL PROTEIN 6.4 g/dL (5.8-8.3)
--- NOTE | 2016-08-04 09:24 | CP.PCM.PN ---
Subjective - Date & Time of Evaluation Date of Evaluation: 08/04/16 Time of Evaluation: 06:50 - Subjective Subjective: Nathan Garcia D.O. PGY-1, General Surgery Progress Note: Dr. Mirtha Gupta. 31 year old female with a PMH of SLE and HTN who presented with right sided flank pain, surgical consultation was placed for possible acalculous cholecystitis. Patient was seen and examined at bedside with surgery team. Patient continues to do better and better everyday, and was found resting comfortably watching television. Patient does admit that she feels much, much better. No complaints elicited at this time. No N/V/D/C/fevers/chills or otherwise. Objective - Vital Signs/Intake and Output Vital Signs (last 24 hours): Temp Pulse Resp BP Pulse Ox 98.8 F 81 20 136/98 H 93 L 08/04/16 08:59 08/04/16 08:59 08/04/16 08:59 08/04/16 08:59 08/04/16 08:59 Intake and Output: 08/04/16 08/04/16 06:59 18:59 Intake Total 920 Balance 920 - Medications Medications: Current Medications Acetaminophen (Tylenol 325mg Tab) 650 mg PO Q6H PRN PRN Reason: Fever >100.4 F Last Admin: 08/04/16 08:35 Dose: 650 mg Amlodipine Besylate (Norvasc) 5 mg PO DAILY [facility] Last Admin: 08/03/16 09:24 Dose: 5 mg Azathioprine (Imuran) 50 mg PO DAILY [facility] Last Admin: 08/03/16 09:24 Dose: 50 mg Hydroxychloroquine Sulfate (Plaquenil) 200 mg PO BID [facility] Last Admin: 08/03/16 17:23 Dose: 200 mg Hydroxychloroquine Sulfate (Plaquenil) 200 mg PO BID [facility] Last Admin: 08/03/16 19:46 Dose: Not Given Meropenem 1g/NS 100mL IVPB (Meropenem 1g/Ns 100ml Ivpb) 1 gm in 100 mls @ 100 mls/hr IVPB Q8 [facility] PRN Reason: Protocol Stop: 08/10/16 17:03 Last Admin: 08/04/16 05:52 Dose: 100 mls/hr Vancomycin HCl (Vancomycin 1gm) 1 gm in 250 mls @ 167 mls/hr IVPB Q12H [facility] PRN Reason: Protocol Last Admin: 08/04/16 01:53 Dose: 167 mls/hr Ibuprofen (Motrin Tab) 400 mg PO Q6H PRN PRN Reason: Headache Last Admin: 08/03/16 17:20 Dose: 400 mg Levofloxacin/Dextrose (Levaquin 750mg) 750 mg IVPB DAILY [facility] Last Admin: 08/03/16 14:51 Dose: 750 mg Morphine Sulfate (Morphine) 1 mg IVP Q4 PRN PRN Reason: moderate pain Last Admin: 08/04/16 06:38 Dose: 1 mg Ondansetron HCl (Zofran Inj) 4 mg IVP Q4 PRN PRN Reason: Nausea/Vomiting Last Admin: 08/03/16 09:33 Dose: 4 mg Pantoprazole Sodium (Protonix Inj) 40 mg IVP DAILY [facility] Last Admin: 08/03/16 09:24 Dose: 40 mg Prednisone (Prednisone Tab) 5 mg PO BID [facility] Last Admin: 08/03/16 17:20 Dose: 5 mg Sucralfate (Carafate Oral Susp) 1 gm PO TID PRN PRN Reason: Dyspepsia Last Admin: 07/29/16 05:39 Dose: 1 gm - Labs Labs: 08/04/16 07:40 08/04/16 07:40 PT 11.3 Seconds (9.9-11.8) 07/29/16 22:02 INR 1.05 (0.93-1.08) 07/29/16 22:02 - Constitutional Appears: Non-toxic, No Acute Distress - Head Exam Head Exam: ATRAUMATIC, NORMAL INSPECTION - Eye Exam Eye Exam: EOMI, Normal appearance - Respiratory Exam Respiratory Exam: NORMAL BREATHING PATTERN. absent: Respiratory Distress - GI/Abdominal Exam GI & Abdominal Exam: Soft, NT, ND, +BSx4 - Back Exam Back Exam: mild residual CVA tenderness (R). absent: CVA tenderness (L) - Neurological Exam Neurological Exam: Alert, Awake, Oriented x4 - Psychiatric Exam Psychiatric exam: Normal Affect, Normal Mood - Skin Skin Exam: Dry, Normal Color, Warm Assessment and Plan - Assessment and Plan (Free Text) Assessment: 31 year old female with a PMH of SLE and HTN who presented with RUQ and right flank pain likely secondary to pyelonephritis, surgery consulted to rule out acalculous cholecystitis. Plan: Symptomatology more likely from her pyelonephritis which is improved than acalculous cholecystitis Cont IV abx as per ID We will continue to follow peripherally Will discuss with attending physician. Thank you for the pleasure of participating in the care of this patient.
[2016-08-04] MEDS: levoFLOXacin 750 mg in D5W 150 ML BAG IVPB SCH (10:22)
--- NOTE | 2016-08-04 12:58 | CP.PCM.PN ---
Subjective - Date & Time of Evaluation Date of Evaluation: 08/04/16 Time of Evaluation: 10:30 - Subjective Subjective: Comfortable, not in distress, feeling better today, no nausea, no SOB, no fevers overnight. Objective - Vital Signs/Intake and Output Vital Signs (last 24 hours): Temp Pulse Resp BP Pulse Ox 98.9 F 102 H 20 115/81 86 L 08/03/16 18:00 08/03/16 18:00 08/03/16 18:00 08/03/16 18:00 08/03/16 08:35 Intake and Output: 08/04/16 08/04/16 06:59 18:59 Intake Total 920 Balance 920 - Medications Medications: Current Medications Acetaminophen (Tylenol 325mg Tab) 650 mg PO Q6H PRN PRN Reason: Fever >100.4 F Last Admin: 08/03/16 09:26 Dose: 650 mg Amlodipine Besylate (Norvasc) 5 mg PO DAILY [facility] Last Admin: 08/03/16 09:24 Dose: 5 mg Azathioprine (Imuran) 50 mg PO DAILY [facility] Last Admin: 08/03/16 09:24 Dose: 50 mg Hydroxychloroquine Sulfate (Plaquenil) 200 mg PO BID [facility] Last Admin: 08/03/16 17:23 Dose: 200 mg Hydroxychloroquine Sulfate (Plaquenil) 200 mg PO BID [facility] Last Admin: 08/03/16 19:46 Dose: Not Given Meropenem 1g/NS 100mL IVPB (Meropenem 1g/Ns 100ml Ivpb) 1 gm in 100 mls @ 100 mls/hr IVPB Q8 [facility] PRN Reason: Protocol Stop: 08/10/16 17:03 Last Admin: 08/04/16 05:52 Dose: 100 mls/hr Vancomycin HCl (Vancomycin 1gm) 1 gm in 250 mls @ 167 mls/hr IVPB Q12H [facility] PRN Reason: Protocol Last Admin: 08/04/16 01:53 Dose: 167 mls/hr Ibuprofen (Motrin Tab) 400 mg PO Q6H PRN PRN Reason: Headache Last Admin: 08/03/16 17:20 Dose: 400 mg Levofloxacin/Dextrose (Levaquin 750mg) 750 mg IVPB DAILY [facility] Last Admin: 08/03/16 14:51 Dose: 750 mg Morphine Sulfate (Morphine) 1 mg IVP Q4 PRN PRN Reason: moderate pain Last Admin: 08/04/16 06:38 Dose: 1 mg Ondansetron HCl (Zofran Inj) 4 mg IVP Q4 PRN PRN Reason: Nausea/Vomiting Last Admin: 08/03/16 09:33 Dose: 4 mg Pantoprazole Sodium (Protonix Inj) 40 mg IVP DAILY [facility] Last Admin: 08/03/16 09:24 Dose: 40 mg Prednisone (Prednisone Tab) 5 mg PO BID [facility] Last Admin: 08/03/16 17:20 Dose: 5 mg Sucralfate (Carafate Oral Susp) 1 gm PO TID PRN PRN Reason: Dyspepsia Last Admin: 07/29/16 05:39 Dose: 1 gm - Labs Labs: 08/03/16 10:00 08/03/16 10:00 PT 11.3 Seconds (9.9-11.8) 07/29/16 22:02 INR 1.05 (0.93-1.08) 07/29/16 22:02 - Constitutional Appears: Non-toxic, No Acute Distress - Head Exam Head Exam: NORMAL INSPECTION - ENT Exam ENT Exam: Mucous Membranes Moist - Neck Exam Neck Exam: absent: Lymphadenopathy, Meningismus - Respiratory Exam Respiratory Exam: Decreased Breath Sounds - Cardiovascular Exam Cardiovascular Exam: +S1, +S2 - GI/Abdominal Exam GI & Abdominal Exam: Soft. absent: Tenderness Assessment and Plan - Assessment and Plan (Free Text) Plan: Assessment Severe sepsis with acute renal failure due to E. coli bacteremia from acute right sided pyelonephritis, as well as possible right lower lobe healthcare- associated pneumonia HTN depression S/P bilateral hip replacement Plan Continue Merrem and Vancomycin and Levaquin (day 2) - discussed with Dr. Pierson - patient is clinically improving - will continue to monitor clinically
--- NOTE | 2016-08-04 14:46 | PN ---
DATE: 08/04/2016 The patient is seen and examined at bedside. She is comfortable. She talks full sentences. She is not in respiratory or otherwise distress. She reports feeling much better. PHYSICAL EXAMINATION: VITAL SIGNS: Temperature 98.8, blood pressure 134/96, respiratory rate 20, oxygen saturation 93% on room air. HEAD AND NECK: Atraumatic. LUNGS: Clear to auscultation bilaterally. HEART: Regular rate and rhythm. S1, S2 normal. ABDOMEN: Soft, nontender, nondistended. MUSCULOSKELETAL: Trace bilateral pedal and ankle edema. NEUROLOGIC: The patient moves all extremities spontaneously. SKIN: Moist. PSYCHIATRIC: The patient is alert and oriented x 3. LABORATORY DATA: WBC 10.4, hemoglobin 8.9, platelet count 259. Sodium 141, potassium 3.6, chloride 104, carbon dioxide 29, BUN 13, creatinine 0.8, glucose 81. AST 55, ALT 48. Procalcitonin 3.27. Complements are normal. ESR 62, slightly elevated. Hepatitis B and C profile are negative. HIV negative. ASSESSMENT AND PLAN: This is a 31-year-old lady with what appears to be healthcare-associated pneumonia on top of pyelonephritis and gram-negative bacteremia. She is on 3 antibiotics coverage including levofloxacin, meropenem and vancomycin. She has been afebrile overnight. She has been diuresed well. She is subjectively doing better. I spoke with [facility] (Dr. Kay Abdi). She accepted patient to [facility]. Transfer is pending. The patient agreed to transfer. All her questions were answered and she verbalized understanding. Will continue with antibiotics, supportive measures. Bossman Pierson MD cc: [id number] TT: 08/04/2016 14:45:23 Confirmation # [id number] Dictation # [id number] mn YURI
[2016-08-05] MEDS: Meropenem 1g/NS 100mL IVPB 1 GM/100 ML PIGGYBACK IVPB SCH ×3 (05:31→21:21)
[2016-08-05 07:40] LABS: ADD MANUAL DIFF? NO
[2016-08-05 07:49] LABS: BASO # 0.01 K/mm3 (0.0-2.0); BASO % 0.1 % (0.0-3.0); GRAN # 6.49 (1.4-6.5); GRAN % 82.5 % (50.0-68.0); HEMATOCRIT 29.1 % (36.0-48.0); LYMPH # 0.8 (1.2-3.4); LYMPH % 10.5 % (22.0-35.0); MEAN CELL VOLUME 96.7 fL (80.0-105.0); MEAN CORPUSCULAR HEMOGLOBIN 31.6 pg (25.0-35.0); MEAN CORPUSCULAR HGB CONC 32.6 g/dl (31.0-37.0); MEAN PLATELET VOLUME 11.8 fl (7.0-11.0); MONO # 0.5 (0.1-0.6); MONO % 6.9 % (1.0-6.0); PLATELET COUNT 315 10^3/uL (120.0-450.0); RED CELL DISTRIBUTION WIDTH 14.7 % (11.5-14.5); WHITE BLOOD COUNT 7.9 10^3/ul (4.5-11.0)
[2016-08-05 07:55] LABS: ALB/GLOB RATIO 0.9 (1.1-1.8); ALKALINE PHOSPHATASE 146 U/L (38-133); ALT/SGPT 60 U/L (7-56); AST/SGOT 89 U/L (15-39); BILIRUBIN,TOTAL 0.4 mg/dL (0.2-1.3); BLOOD UREA NITROGEN 12 mg/dL (7-21); CARBON DIOXIDE 33 mmol/L (21-33); CHLORIDE 99 mmol/L (95-110); GFR AFRICAN-AMERICAN > 60; GLUCOSE,RANDOM 80 mg/dL (70-110); POTASSIUM 3.6 mmol/L (3.6-5.0); SODIUM 139 mmol/L (132-148)
[2016-08-05] MEDS: levoFLOXacin 750 mg in D5W 150 ML BAG IVPB SCH (09:37)
[2016-08-05] MEDS: Morphine 2 mg/ml ISec IVP PRN ×2 (09:42→23:06)
--- NOTE | 2016-08-05 14:29 | CARD ---
APPROVED REPORT EKG Measurement Heart [id number] <Conclusion> Sinus rhythm with premature supraventricular complexes T wave abnormality, consider anterior ischemia Abnormal ECG
--- NOTE | 2016-08-05 15:12 | PN ---
DATE: 08/05/2016 The patient is seen and examined at bedside. She is comfortable. She talks full sentences. She is not in respiratory or otherwise distress. She reports that subjectively she is doing very much better, and she is back to her baseline. PHYSICAL EXAMINATION: VITAL SIGNS: Temperature 98.7, blood pressure 129/88, respiratory rate 20, oxygen saturation 93% on room air. Heart rate is 87. HEAD AND NECK: Atraumatic. LUNGS: Clear to auscultation bilaterally. HEART: Some extra beats. S2 split with P2 component appears to be more prominent. ABDOMEN: Soft, nontender, nondistended. MUSCULOSKELETAL: No C/C/E. NEUROLOGIC: The patient moves all extremities spontaneously. SKIN: Moist. PSYCHIATRIC: The patient is alert and oriented x 3. LABORATORY DATA: WBC 7.9, hemoglobin 9.5, platelet count 315. Sodium 139, potassium 3.6, chloride 99, carbon dioxide 33. BUN 12, creatinine 0.7. Glucose 80. AST 89, ALT 60, alkaline phosphatase 146, procalcitonin 0.78 down from 3.27. MEDICATIONS: Tylenol p.r.n., Norvasc daily, Imuran 50 mg daily, Lasix 40 mg IV q. 12, however, switch to PO, Plaquenil, ibuprofen p.r.n., levofloxacin, meropenem, Zofran p.r.n., morphine p.r.n., prednisone 5 mg p.o. b.i.d., vancomycin and Cipro 5 p.r.n. ASSESSMENT AND PLAN: This 31-year-old lady with severe pulmonary hypertension most likely type 1 PAH. Her healthcare-associated pneumonia appears to be resolving. She is afebrile. No leukocytosis. The patient has been afebrile over 48 hours. She is pending transfer to [facility] for right heart catheterization with vasoreactivity test, and further workup and management of her severe pulmonary hypertension, likely arterial. She diuresed well, and at present time, appears to be euvolemic. I would continue to target euvolemia, euglycemia, normothermia, and oxygen saturation more than 90%. We will proceed with 6-minute walk test, and we will get pulmonary function test, as the patient is at her baseline at present time. Bossman Pierson MD cc: [id number] TT: 08/05/2016 15:11:09 Confirmation # [id number] Dictation # [id number] MTDD
[2016-08-05] MEDS: Vancomycin 1gm in NS 250ml 1 GM/250 ML BAG IVPB SCH (17:25)
--- NOTE | 2016-08-05 17:31 | CP.PCM.PN ---
<Mundo Finn - Last Filed: 08/05/16 17:28> Subjective - Date & Time of Evaluation Date of Evaluation: 08/05/16 Time of Evaluation: 11:45 - Subjective Subjective: Patient seen at bedside. She is much improved clinically. Abdominal pain is improved. There is no n/v or fever. Patient is still pending transfer to [facility] for pulmonary htn w/u and management. Objective - Vital Signs/Intake and Output Vital Signs (last 24 hours): Temp Pulse Resp BP Pulse Ox 98.8 F 87 18 117/85 99 08/05/16 09:00 08/05/16 09:35 08/05/16 09:00 08/05/16 17:26 08/05/16 09:00 Intake and Output: 08/05/16 08/05/16 06:59 18:59 Intake Total 910 480 Balance 910 480 - Medications Medications: Current Medications Acetaminophen (Tylenol 325mg Tab) 650 mg PO Q6H PRN PRN Reason: Fever >100.4 F Last Admin: 08/05/16 09:34 Dose: 650 mg Amlodipine Besylate (Norvasc) 5 mg PO DAILY [facility] Last Admin: 08/05/16 09:35 Dose: 5 mg Azathioprine (Imuran) 50 mg PO DAILY [facility] Last Admin: 08/05/16 09:35 Dose: 50 mg Furosemide (Lasix) 40 mg PO BID [facility] Last Admin: 08/05/16 17:26 Dose: 40 mg Hydroxychloroquine Sulfate (Plaquenil) 200 mg PO BID [facility] Last Admin: 08/05/16 17:26 Dose: 200 mg Meropenem 1g/NS 100mL IVPB (Meropenem 1g/Ns 100ml Ivpb) 1 gm in 100 mls @ 100 mls/hr IVPB Q8 [facility] PRN Reason: Protocol Stop: 08/10/16 17:03 Last Admin: 08/05/16 14:42 Dose: 100 mls/hr Vancomycin HCl (Vancomycin 1gm) 1 gm in 250 mls @ 167 mls/hr IVPB Q12H [facility] PRN Reason: Protocol Last Admin: 08/05/16 17:25 Dose: 167 mls/hr Ibuprofen (Motrin Tab) 400 mg PO Q6H PRN PRN Reason: Headache Last Admin: 08/03/16 17:20 Dose: 400 mg Levofloxacin/Dextrose (Levaquin 750mg) 750 mg IVPB DAILY [facility] Last Admin: 08/05/16 09:37 Dose: 750 mg Morphine Sulfate (Morphine) 1 mg IVP Q4 PRN PRN Reason: moderate pain Last Admin: 08/05/16 09:42 Dose: 1 mg Ondansetron HCl (Zofran Inj) 4 mg IVP Q4 PRN PRN Reason: Nausea/Vomiting Last Admin: 08/03/16 09:33 Dose: 4 mg Pantoprazole Sodium (Protonix Inj) 40 mg IVP DAILY [facility] Last Admin: 08/05/16 11:51 Dose: 40 mg Prednisone (Prednisone Tab) 5 mg PO BID [facility] Last Admin: 08/05/16 17:26 Dose: 5 mg Sucralfate (Carafate Oral Susp) 1 gm PO TID PRN PRN Reason: Dyspepsia Last Admin: 07/29/16 05:39 Dose: 1 gm - Labs Labs: 08/05/16 07:30 08/05/16 07:30 PT 11.3 Seconds (9.9-11.8) 07/29/16 22:02 INR 1.05 (0.93-1.08) 07/29/16 22:02 - Constitutional Appears: Non-toxic, No Acute Distress - Head Exam Head Exam: ATRAUMATIC, NORMOCEPHALIC - Eye Exam Eye Exam: EOMI, PERRL - ENT Exam ENT Exam: Mucous Membranes Moist - Neck Exam Neck Exam: Full ROM - Respiratory Exam Respiratory Exam: Clear to Ausculation Bilateral. absent: Rales, Rhonchi - Cardiovascular Exam Cardiovascular Exam: REGULAR RHYTHM, +S1, +S2 - GI/Abdominal Exam GI & Abdominal Exam: Soft, Normal Bowel Sounds. absent: Tenderness - Extremities Exam Extremities Exam: absent: Calf Tenderness, Pedal Edema - Neurological Exam Neurological Exam: Alert, Awake, Oriented x3 - Psychiatric Exam Psychiatric exam: Normal Affect, Normal Mood - Skin Skin Exam: Dry, Warm Assessment and Plan - Assessment and Plan (Free Text) Assessment: 31 y/o female with a PMHx SLE, Htn who presents to the ED with acute pyelonephritis. CT abd/pelvis reveals evidence of gustavo-nephric inflammation. Patient has experienced intermittent fevers since admission with a lack of adequate clinical improvement. Repeat abdominal CT reveals gustavo-cholecystic inflammation concerning for acalculous cholecystitis. Surgery and GI are following. No intervention is planned at this point. Gallbladder inflammation may be an extension of perinephric inflammation. Echo results reveal severe pulmonary hypertension with dilation of right heart chambers. Pulmonary is following. There is also questionable right sided infiltrate. Plan is to transfer patient to [facility] for right heart cath and w/u for pulmonary HTN. Transfer is pending. We are awaiting an available bed. Right sided pyelonephritis - continue Meropenem day 4 - ID is following - continue Morphine 1 q 4h - zofran for nausea - tolerating diet Pulmonary HTN - severe PH on echo - pulmonary following - likely type I - patient will require right heart catheterization with vasodilators. Will need to be referred to tertiary center after discharge. right lung infiltrate vs atelectasis and pneumonitis - CT chest pending - if pna is considered patient require abx coverage for HCAP Bacteremia - gram negative rods growing - ID following - continue current abx GENOVEVA - pre-renal 2/2 decreased PO intake coupled with vomiting. acute injury is resolved - renal function is improved - continue IVF - avoid nephrotoxic meds - continue to monitor SLE - c/w hydroxychloroqine and prednisone daily Htn - c/w amlodipine po daily PPX - protonix 40mg daily - scd's <Braeden ABDI,Briannabohemiasobeida - Last Filed: 08/06/16 15:42> Objective - Vital Signs/Intake and Output Vital Signs (last 24 hours): Temp Pulse Resp BP Pulse Ox 97.7 F 97 H 20 144/98 H 97 08/05/16 23:00 08/05/16 23:00 08/05/16 23:00 08/05/16 23:00 08/05/16 23:00 Intake and Output: 08/06/16 08/06/16 06:59 18:59 Intake Total 480 Balance 480 - Labs Labs: 08/05/16 07:30 08/05/16 07:30 PT 11.3 Seconds (9.9-11.8) 07/29/16 22:02 INR 1.05 (0.93-1.08) 07/29/16 22:02 Attending/Attestation - Attestation I have personally seen and examined this patient.: Yes I have fully participated in the care of the patient.: Yes I have reviewed all pertinent clinical information, including history, physical exam and plan: Yes Notes (Text): 08/06/16 15:38 Patient was seen and examined with lead medical technologist .Agreed with resident assessment and plan. Patient is afebrile, feeling better at her base line.Leg edema has improved.Patient is awaiting bed at [facility] . She has been accepted by Pulmonary HTN service for evaluation for the etiology of Pulmonary HTN. Management plan was discussed in detail with patient Education was provided.
[2016-08-05 18:04] VITALS: RESP 20
--- NOTE | 2016-08-05 21:05 | CP.PCM.PN ---
Subjective - Date & Time of Evaluation Date of Evaluation: 08/05/16 Time of Evaluation: 10:30 - Subjective Subjective: Comfortable, not in distress, less flank pain, feeling better, afebrile overnight. Objective - Vital Signs/Intake and Output Vital Signs (last 24 hours): Temp Pulse Resp BP Pulse Ox 98.7 F 87 20 129/88 93 L 08/05/16 08:17 08/05/16 09:35 08/05/16 08:17 08/05/16 09:36 08/05/16 08:17 Intake and Output: 08/05/16 08/05/16 06:59 18:59 Intake Total 910 Balance 910 - Medications Medications: Current Medications Acetaminophen (Tylenol 325mg Tab) 650 mg PO Q6H PRN PRN Reason: Fever >100.4 F Last Admin: 08/05/16 09:34 Dose: 650 mg Amlodipine Besylate (Norvasc) 5 mg PO DAILY [facility] Last Admin: 08/05/16 09:35 Dose: 5 mg Azathioprine (Imuran) 50 mg PO DAILY [facility] Last Admin: 08/05/16 09:35 Dose: 50 mg Furosemide (Lasix) 40 mg IVP Q12 [facility] Last Admin: 08/05/16 09:36 Dose: 40 mg Hydroxychloroquine Sulfate (Plaquenil) 200 mg PO BID [facility] Last Admin: 08/05/16 09:35 Dose: 200 mg Meropenem 1g/NS 100mL IVPB (Meropenem 1g/Ns 100ml Ivpb) 1 gm in 100 mls @ 100 mls/hr IVPB Q8 [facility] PRN Reason: Protocol Stop: 08/10/16 17:03 Last Admin: 08/05/16 05:31 Dose: 100 mls/hr Vancomycin HCl (Vancomycin 1gm) 1 gm in 250 mls @ 167 mls/hr IVPB Q12H [facility] PRN Reason: Protocol Last Admin: 08/04/16 13:40 Dose: 167 mls/hr Ibuprofen (Motrin Tab) 400 mg PO Q6H PRN PRN Reason: Headache Last Admin: 08/03/16 17:20 Dose: 400 mg Levofloxacin/Dextrose (Levaquin 750mg) 750 mg IVPB DAILY [facility] Last Admin: 08/05/16 09:37 Dose: 750 mg Morphine Sulfate (Morphine) 1 mg IVP Q4 PRN PRN Reason: moderate pain Last Admin: 08/05/16 09:42 Dose: 1 mg Ondansetron HCl (Zofran Inj) 4 mg IVP Q4 PRN PRN Reason: Nausea/Vomiting Last Admin: 08/03/16 09:33 Dose: 4 mg Pantoprazole Sodium (Protonix Inj) 40 mg IVP DAILY [facility] Last Admin: 08/04/16 10:22 Dose: 40 mg Prednisone (Prednisone Tab) 5 mg PO BID [facility] Last Admin: 08/05/16 09:36 Dose: 5 mg Sucralfate (Carafate Oral Susp) 1 gm PO TID PRN PRN Reason: Dyspepsia Last Admin: 07/29/16 05:39 Dose: 1 gm - Labs Labs: 08/05/16 07:30 08/05/16 07:30 PT 11.3 Seconds (9.9-11.8) 07/29/16 22:02 INR 1.05 (0.93-1.08) 07/29/16 22:02 - Constitutional Appears: Non-toxic, No Acute Distress - Head Exam Head Exam: NORMAL INSPECTION - ENT Exam ENT Exam: Mucous Membranes Moist - Neck Exam Neck Exam: absent: Lymphadenopathy, Meningismus - Respiratory Exam Respiratory Exam: Decreased Breath Sounds - Cardiovascular Exam Cardiovascular Exam: +S1, +S2 - GI/Abdominal Exam GI & Abdominal Exam: Soft. absent: Tenderness Assessment and Plan - Assessment and Plan (Free Text) Plan: Assessment Severe sepsis with acute renal failure due to E. coli bacteremia from acute right sided pyelonephritis, as well as possible right lower lobe healthcare- associated pneumonia, clinically improving HTN depression S/P bilateral hip replacement pulmonary HTN Plan Continue Merrem and Vancomycin and Levaquin (day 3) - discussed with Dr. Pierson - patient is clinically improving - will continue to monitor clinically and target up to 7 days of therapy for the possible pneumonia Patient Patient waiating to be transferred to [facility] for work up and management of her pulmonary HTN
[2016-08-05 23:14] VITALS: BP 144/98; PULSE 97; TEMP 97.7; O2SAT 97
--- NOTE | 2016-08-06 02:47 | CP.PCM.PN ---
Subjective - Date & Time of Evaluation Date of Evaluation: 08/06/16 Time of Evaluation: 02:46 - Subjective Subjective: Cosigned order by . Checked with nurse Rosalia. Objective - Vital Signs/Intake and Output Vital Signs (last 24 hours): Temp Pulse Resp BP Pulse Ox 97.7 F 97 H 20 144/98 H 97 08/05/16 23:00 08/05/16 23:00 08/05/16 23:00 08/05/16 23:00 08/05/16 23:00 Intake and Output: 08/05/16 08/06/16 18:59 06:59 Intake Total 480 480 Balance 480 480 - Labs Labs: 08/05/16 07:30 08/05/16 07:30 PT 11.3 Seconds (9.9-11.8) 07/29/16 22:02 INR 1.05 (0.93-1.08) 07/29/16 22:02
== END 2016-08-05 23:21 | disposition short-term general hospital (02) | DRG 584 ==
LOC: ED 18:45 → ERH 21:20 → 3RNO 23:48
PROVIDERS: ADMIT Hospitalist; ATTEND Internal Medicine
DX: A41.51 Sepsis due to Escherichia coli [E. coli] (principal); N10 Acute pyelonephritis; N17.9 Acute kidney failure, unspecified; I27.2 Other secondary pulmonary hypertension; J18.9 Pneumonia, unspecified organism; R18.8 Other ascites; M32.9 Systemic lupus erythematosus, unspecified; K81.9 Cholecystitis, unspecified; R65.20 Severe sepsis without septic shock; I10 Essential (primary) hypertension; K21.9 Gastro-esophageal reflux disease without esophagitis; Y95 Nosocomial condition; M19.90 Unspecified osteoarthritis, unspecified site; F41.9 Anxiety disorder, unspecified; Z96.643 Presence of artificial hip joint, bilateral; Z87.891 Personal history of nicotine dependence; Z88.0 Allergy status to penicillin